=== PATIENT | male | born 1980 | race Caucasian/White ===

== ENCOUNTER 2020-05-02 17:50 | Emergency (ER) | payer OTHER, SELFPAY ==
[2020-05-02 17:58] VITALS: BP 143/82; PULSE 83; RESP 18; TEMP 36.9; O2SAT 96
--- NOTE | 2020-05-02 18:00 | DI.CT_ITS ---
EXAM: CT CHEST/ABD/PEL W TECHNIQUE: CT examination of the chest, abdomen, and pelvis was performed with bolus infusion of 100 cc of Omnipaque 350. COMPARISON: No exams were available for comparison FINDINGS: There is no evidence of a thoracic vascular injury. The lungs are clear. No pneumothorax or pleural effusion. No mediastinal hematoma. No adenopathy in the chest. Tracheobronchial tree appears intact. The liver, spleen, and pancreas appear normal. Gallbladder and bile ducts are normal. Adrenals and kidneys are unremarkable. No evidence of urinary tract injury or obstruction. No abdominal or pelvic vascular injury seen. No abdominal or pelvic adenopathy. No significant abdomi nal wall hernia or hematoma. No evidence of bowel injury. IMPRESSION: No evidence of acute injury of the chest, abdomen, or pelvis. RADIATION DOSE DELIVERED: 927.91mGy.cm Total DLP 927.91mGy.cm Total DLP DATA REPOSITORY: All CT scans at this facility are submitted to the National Radiology Data Registry (NRDR) Dose Index Registry (DIR) with the [employer] (ACR). RADIATION OPTIMIZATION: All CT scans at this facility use at least one of these dose optimization te chniques: automated exposure control; mA and/or kV adjustment per patient size (includes targeted exa ms where dose is matched to clinical indication); or iterative reconstruction.
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
[2020-05-02 18:17] LABS: Abs Immature Grans 0.04 10^3/uL (0.0-0.06); Absolute Basophil Count 0.03 10^3/uL (0.0-0.2); Absolute Eosinophil Count 0.02 10^3/uL (0.0-0.7); Absolute Lymphocyte Count 2.21 10^3/uL (1.2-3.4); Basophils % 0.3; Eosinophils % 0.2; HCT 44.2 % (40.0-50.0); HGB 15.1 g/dL (13.5-17.5); Immature Grans % 0.4; Lymphocytes % 20.5; MCH 30.2 pg (27.0-33.0); MCHC 34.2 % (32.0-36.0); MCV 88.4 fL (80-95); MPV 9.7 fL (8.0-11.0); Monocytes % 5.6; Platelet Count 233 10^3/uL (130-400); RDW 12.2 % (11.8-14.1); RDW-SD 39.2 fL
--- NOTE | 2020-05-02 18:17 | DI.CT_ITS ---
EXAM: CT HEAD CERVICAL SPINE WO COMPARISON: No exams were available for comparison FINDINGS: CT examination of the cervical spine was performed without contrast administration. There is no evide nce of acute cervical spine fracture or dislocation. Tracheolaryngeal structures appear intact. No ce rvical mass or adenopathy. Intervertebral disc spaces are well maintained. Noncontrast cranial CT was performed. Ventricular system is normal in appearance. No evidence of acut e intracranial hemorrhage, mass effect, or midline shift. No calvarial fracture. The orbital and temp oral bone structures appear intact. IMPRESSION: No evidence of acute cervical spine injury. No evidence of acute intracranial injury. RADIATION DOSE DELIVERED: 1,129.41mGy.cm Total DLP DATA REPOSITORY: All CT scans at this facility are submitted to the National Radiology Data Registry (NRDR) Dose Index Registry (DIR) with the [employer] (ACR). RADIATION OPTIMIZATION: All CT scans at this facility use at least one of these dose optimization te chniques: automated exposure control; mA and/or kV adjustment per patient size (includes targeted exa ms where dose is matched to clinical indication); or iterative reconstruction.
[2020-05-02 18:30] LABS: PTT Activated 23.2 sec (21.0-31.4); Prothrombin Time 10.4 sec (9.3-11.0)
[2020-05-02 18:32] LABS: ALT 25 U/L (16-63); AST 22 U/L (15-37); Albumin 4.4 g/dL (3.4-5.0); Alkaline Phosphatase 59 U/L (46-116); Anion Gap 14.2 mmol/L (3-11); BUN 9 mg/dL (7-18); Bilirubin, Total 0.2 mg/dL (0.2-1.0); CO2 22.8 mmol/L (21.0-32.0); CREATININE 1.03 mg/dL (0.70-1.30); Calcium 9.4 mg/dL (8.5-10.1); Chloride 102 mmol/L (98-107); Glucose 91 mg/dL (74-106); Lipase 118 U/L (73-393); Potassium 3.7 mmol/L (3.5-5.1); Sodium 139 mmol/L (136-145); Total Protein 7.9 g/dL (6.4-8.2)
[2020-05-02] MEDS: Omnipaque 350 MG/ML 100 ML BTL IJ (18:36)
[2020-05-02] MEDS: Normal Saline - Diluent 50 ML VIAL IV (18:37)
[2020-05-02] MEDS: Normal Saline Flush 10 ML SYR IVP (18:37)
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
[2020-05-02 19:34] LABS: Bilirubin Negative (Negative); Blood Negative (Negative); Clarity Clear (Clear); Glucose Negative (Negative); Ketones Negative (Negative); Leukocyte Esterase Negative (Negative); Nitrite Negative (Negative); Urobilinogen 0.2 EU/dL (Up TO 0.2)
[2020-05-02 20:26] VITALS: PULSE 72; RESP 18; TEMP 36.8; O2SAT 98
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
== END 2020-05-02 20:15 | disposition home or self-care (01) ==
PROVIDERS: Emergency Provider Physician Assistant; PCP Family Medicine
DX: S06.0X1A Concussion with loss of consciousness of 30 minutes or less, initial encounter (principal); M54.5 Low back pain; W50.0XXA Accidental hit or strike by another person, initial encounter; Y93.64 Activity, baseball; R11.0 Nausea
CPT/HCPCS: 36415; 74177; 80053; 83690; 99285; 70450; 71260; 72125; 80320; 81003; 85025; 85610; 85730; 99284; J3490; L0172

== ENCOUNTER 2020-10-20 10:00 | Outpatient (REF) | payer OTHER, SELFPAY ==
[2020-10-21 17:39] LABS: COVID-19 RT-PCR UVMMC Result Negative (Negative)
== END 2020-10-20 10:20 ==
LOC: NCHCN 10:00
PROVIDERS: PCP Emergency Medicine; Visit Provider Physician Assistant Medical
DX: Z20.828 Contact with and (suspected) exposure to other viral communicable diseases (principal)
CPT/HCPCS: U0003

== ENCOUNTER 2022-04-21 00:50 | Emergency (ER) | payer BC, SELFPAY ==
[2022-04-21] VITALS (43 sets, daily range): BP systolic 102–141; BP diastolic 59–93; PULSE 65–96; RESP 7–25; TEMP 36.8; O2SAT 83–100
--- NOTE | 2022-04-21 00:45 | RT.EKG_ITS ---
APPROVED REPORT Exam: Resting ECG Reason for Exam: chest pain Patient Location: E HR:87 bpm ECG Measurements Heart Rate 87 AXIS DC 129 P 70 QRSd 75 QRS 57 QT 357 T 29 QTc 429 Conclusion Sinus rhythm...normal P axis, V-rate 60- 99 Consider left ventricular hypertrophy...(S V1+R V5/V6) >3.50mV Physician: no significant st elevation or depressions. no stemi
--- NOTE | 2022-04-21 01:00 | DI.CT_ITS ---
Exam(s) CT THORAX CTA EXAM: CT THORAX CTA CLINICAL HISTORY: FHx of anyurism, left chest pain, recent cocaine. TECHNIQUE: Imaging Protocol: Axial CT angiography was performed with multi-slice acquisition and mu lti-planar reconstructions as well as axial, coronal and sagittal MIP reconstructions. CONTRAST MATERIAL: Intravenous: Omnipaque 350 Contrast volume:100 ml COMPARISON: CT CT CHEST/ABD/PEL W from 05/02/2020 FINDINGS: Pulmonary Arteries: No evidence of filling defect to suggest pulmonary emboli. Tracheobronchial tree: Patent where visualized. Mediastinum and Princess: No dominant adenopathy or fluid collection. Pulmonary parenchyma: No consolidation or dominant measurable mass. Pleura: No effusion or pneumothorax. Heart: The heart is not dilated. No coronary artery calcifications are seen. Aorta: Thoracic aorta non-dilated. No aneurysm. No dissection. No visible atherosclerotic changes. Upper abdomen: Unremarkable. Bones: Unremarkable for age. IMPRESSION: No evidence of pulmonary embolism or other acute abnormality. Aorta appears normal.. RADIATION DOSE DELIVERED: 315.58mGy.cm Total DLP DATA REPOSITORY: All CT scans at this facility are submitted to the National Radiology Data Registry (NRDR) Dose Index Registry (DIR) with the [employer] (ACR). RADIATION OPTIMIZATION: All CT scans at this facility use at least one of these dose optimization te chniques: automated exposure control; mA and/or kV adjustment per patient size (includes targeted exa ms where dose is matched to clinical indication); or iterative reconstruction.
[2022-04-21] MEDS: nitroGLYcerin 0.4 MG TAB SL (01:05)
--- NOTE | 2022-04-21 01:08 | ED.GENADUL_ITS ---
Discharge Plan Disposition Patient Disposition: HOME Condition: Good Discharge Details Clinical Impression: Chest pain Primary Care Provider: Larry Berg ED Provider: Delvis Mejia Home Meds and New Rx's Prescriptions: Continued esomeprazole magnesium [Nexium 24HR] 20 mg capsule,delayed release(DR/EC) 40 mg PO DAILY sertraline 50 mg tablet 50 mg PO DAILY Qty: 60 6RF Rx Instructions: .5 tab x 7d, then 1 tab x 7d, then 1.5 tab x 7d acetaminophen [Tylenol] 325 MG tablet 650 mg PRN Discharge Instructions Instructions: Chest Pain (ED) Additional Instructions: At this time your work-up is reassuring and shows no evidence of blood clots, heart attack, tumors, pneumonia, or other significant abnormalities. Please continue to monitor your symptoms closely, take Tylenol and Motrin as needed for pain. If you notice any worsening of your symptoms, or any new symptoms such as vomiting, diarrhea, fever, chills, shortness of breath, chest pain, numbness, weakness, or fainting , please return immediately to the emergency department for reevaluation. Please follow up with your primary care provider as soon as possible for reassessment and reevaluation. As always, it was a pleasure participating in your medical care today. Referrals: Larry Berg, [employer] [Primary Care Provider] - Medical Decision Making This is a 41-year-old male with no significant past medical history who presents today for chest pain. At 10:30 PM just under 3 hours prior to arrival he developed left-sided chest pain while sleeping. It woke him up out of sleep. He describes it initially as an achy sensation, which then encapsulated his left chest and left arm. It is painful to breathe, made worse with any deep breath. Unchanged by movement or positioning, unchanged by leaning forward. He denies any cough, fever or chills. He denies any tearing or ripping sensation. He denies any recent long trips, surgery or procedures. He does smoke tobacco regularly. No family history of myocardial infarction, but he does have a family history of aneurysms in first and second-degree relatives. He does admit to cocaine use in the last 1 to 2 weeks. He states he does not do this regularly. He denies any IV drug use. He denies any numbness or tingling in his arms or legs. No other complaints at this time. No other modifying factors. Physical exam demonstrates a well-appearing but slightly uncomfortable male. Radial pulses equal bilaterally. Breath sounds symmetric. Limited bedside echo demonstrates good cardiac contractility. No evidence of pericardial effusion. Differential includes cardiac etiology including but less likely ACS, pneumothorax, and because of his family history and cocaine use dissection/aneurysm is certainly of concern. Because of these findings, we will get a CTA, evaluate for concerning etiology, treat the patient's pain, administered nitroglycerin, monitor closely and reassess. 4:48 AM EKG is returned normal, initial and delta troponin are normal. Minimal elevation in his white count. Electrolytes normal, renal function normal. CTA was ordered for the above-mentioned concerns, and CTA shows no evidence of aneurysm, pulmonary abnormality, or pulmonary embolism. On reassessment patient has mild improvement of his symptoms. He seems to be relatively unchanged though with nitroglycerin Toradol or GI cocktail. He states his symptoms do not feel as bad as they initially did when he arrived. He does feel comfortable going home. Differential now more likely includes a pleurisy component, potential esophageal irritation or ulcer, but the symptoms are notably clinically inconsistent at this time with pulmonary embolism, AAA, dissection, pneumonia, tumor, or ACS. With initial and delta troponin normal, and his current clinical symptomatology inconsistent with ACS, I do feel that he is stable for discharge with close follow-up. We had a long discussion regarding red flags for which to return. Also discussed avoiding cocaine in the future. I have extensively reviewed the treatment plan and discharge instructions with the patient. I have addressed all patient concerns at this time. The patient was made aware of what symptoms to monitor for that would warrant a return to the emergency department. Discussed the plan with the patient, they demonstrate verbal understanding and agreement with our assessment and plan at this time. The documentation in this chart was dictated using [employer] dictation software. Please excuse any dictation errors. FINDINGS: Pulmonary arteries: Normal. No pulmonary emboli. Aorta: Unremarkable. No aortic aneurysm. No aortic dissection. Lungs: Unremarkable. No consolidation. No masses. Pleural spaces: Unremarkable. No pneumothorax. No pleural effusion. Heart: Unremarkable. No cardiomegaly. No pericardial effusion. Lymph nodes: Unremarkable. No enlarged lymph nodes. Bones/joints: Unremarkable. No acute fracture. Soft tissues: Unremarkable. IMPRESSION: No acute findings. Thank you for allowing us to participate in the care of your patient. Dictated and Authenticated by: Forrest Carrillo MD 04/21/2022 3:37 AM Eastern Time ([place] & [place]) HPI General Date/Time Provider Initiated Documentation: 04/21/22 00:51 . HPI Narrative: This is a 41-year-old male with no significant past medical history who presents today for chest pain. At 10:30 PM just under 3 hours prior to arrival he developed left-sided chest pain while sleeping. It woke him up out of sleep. He describes it initially as an achy sensation, which then encapsulated his left chest and left arm. It is painful to breathe, made worse with any deep breath. Unchanged by movement or positioning, unchanged by leaning forward. He denies any cough, fever or chills. He denies any tearing or ripping sensation. He denies any recent long trips, surgery or procedures. He does smoke tobacco regularly. No family history of myocardial infarction, but he does have a family history of aneurysms in first and second-degree relatives. He does admit to cocaine use in the last 1 to 2 weeks. He states he does not do this regularly. He denies any IV drug use. He denies any numbness or tingling in his arms or legs. No other complaints at this time. No other modifying factors. Related Data Home Medications Medication Instructions Recorded Confirmed acetaminophen 325 mg tablet 650 mg PRN 01/28/14 05/05/20 (Tylenol) esomeprazole magnesium 20 mg 40 mg PO DAILY 06/01/20 04/21/22 capsule,delayed release (Nexium 24HR) sertraline 50 mg tablet 50 mg PO DAILY #60 tabs 06/01/20 06/01/20 Previous Rx's Medication Instructions Recorded sertraline 50 mg tablet 50 mg PO DAILY #60 tabs 06/01/20 Allergies Allergy/AdvReac Type Severity Reaction Status Date / Time No Known Allergies Allergy Unverified 04/21/22 00:59 General Stated Complaint: Chest Pain JUAN ALBERTO: 2 Review of Systems All systems reviewed & are unremarkable except as noted in HPI and below PFSH All Active Problems (Updated 04/21/22 @ 03:27 by Delvis Mejia DO) Chest pain (Acute) Anxiety (Chronic) Social History (Reviewed 04/21/22 @ 01:23 by LACHO Barnes Smoking/Tobacco Use Status: Current every day Tobacco Type: cigarettes Smoking risk assessment performed?: Yes Alcohol Intake: current Alcohol Intake frequency: a few times a week Drug use: Occasionally Substance use type: marijuana and crack/cocaine Details: admit to 6-7 beers today Do you feel safe at home: Yes Do you feel safe in your relationship?: Yes Exam Narrative Exam Narrative: 1.Const: Well-nourished, Well-developed, appearing stated age 2.Eyes: PERRL, no conjunctival injection, and symmetrical lids. 3.ENT: Atraumatic external nose and ears. Moist MM. Neck: Symmetric, trachea midline, No thyromegaly. 4.CVS: +S1/S2, No murmurs or gallops. Peripheral pulses 2+ and equal in all extremities. Brisk capillary refill in all extremities. 5.RESP: Unlabored respiratory effort. Clear to auscultation bilaterally. No wheezes rales or rhonchi 6.GI: Soft, Nontender/Nondistended, No hepatosplenomegaly. No guarding or rebound. 7.MSK: Normocephalic/Atraumatic, Extremities w/o deformity or ttp No cyanosis or clubbing, Normal movement of all extremities 8.Skin: Warm, Dry. No rashes or lesions. 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 Sensation grossly intact, no focal neurologic deficits. 10.Psych: (AAO) x3. Appropriate mood and affect Course Vital Signs Vital signs: Vital Signs Temperature 36.8 C 04/21/22 00:56 Pulse 86 04/21/22 00:56 Respiratory Rate 04/21/22 00:56 Blood Pressure 141/91 H 04/21/22 00:56 Pulse Oximetry 100 04/21/22 00:56 Temperature 36.8 C 04/21/22 00:56 Temperature Source Temporal Artery Scan 04/21/22 00:56 Pulse 86 04/21/22 00:56 Respiratory Rate 22 04/21/22 00:56 Respiratory Effort 04/21/22 01:00 Blood Pressure 141/91 H 04/21/22 00:56 Blood Pressure Position Sitting 04/21/22 00:56 Pulse Oximetry 100 04/21/22 00:56 Oxygen Delivery Method Room Air 04/21/22 00:56 Oxygen Flow Rate 0 07/22/22 00:56 Pain Level 6 04/21/22 00:56
[2022-04-21] MEDS: MORPHine 10 MG/ML VIAL 4 MG IVP (01:10)
[2022-04-21] MEDS: nitroGLYcerin 0.4 MG TAB (01:10)
[2022-04-21 01:15] LABS: Abs Immature Grans 0.06 10^3/uL (0.0-0.06); Absolute Basophil Count 0.03 10^3/uL (0.0-0.2); Absolute Eosinophil Count 0.23 10^3/uL (0.0-0.7); Absolute Lymphocyte Count 3.14 10^3/uL (1.2-3.4); Absolute Monocyte Count 0.73 10^3/uL (0.1-0.8); Basophils % 0.2; Eosinophils % 1.6; HCT 45.9 % (40.0-50.0); HGB 15.4 g/dL (13.5-17.5); Immature Grans % 0.4; MCH 30.2 pg (27.0-33.0); MCHC 33.6 % (32.0-36.0); MCV 90 fL (80-95); MPV 9.5 fL (8.0-11.0); Monocytes % 5.1; Neutrophils % 70.7; Platelet Count 227 10^3/uL (130-400); RDW 12.2 % (11.8-14.1); RDW-SD 40.7 fL; WBC 14.29 10^3/uL (4.4-10.8)
[2022-04-21 01:30] LABS: PTT Activated 25.2 sec (21.0-27.5); Prothrombin Time 10.2 sec (9.3-11.0)
[2022-04-21 01:31] LABS: ALT 23 U/L (16-63); AST 14 U/L (15-37); Albumin 4.2 g/dL (3.4-5.0); Alkaline Phosphatase 63 U/L (46-116); Anion Gap 9.3 mmol/L (3-11); BUN 16 mg/dL (7-18); Bilirubin, Total 0.3 mg/dL (0.2-1.0); CO2 27.7 mmol/L (21.0-32.0); CREATININE 1.1 mg/dL (0.70-1.30); Calcium 9.4 mg/dL (8.5-10.1); Chloride 102 mmol/L (98-107); Glucose 120 mg/dL (74-106); Potassium 3.4 mmol/L (3.5-5.1); Sodium 139 mmol/L (136-145); Total Protein 7.7 g/dL (6.4-8.2); Troponin I < 50 ng/L (<or=60)
[2022-04-21] MEDS: Omnipaque 350 MG/ML 100 ML BTL IJ (01:43)
--- NOTE | 2022-04-21 03:37 | DI.VRAD_ITS ---
PROCEDURE INFORMATION: Exam: CTA Chest With Contrast Exam date and time: 04/21/2022 1:29 AM Age: 41 years old Clinical indication: Chest wall pain; Additional info: Fhx of anyurism, left chest pain, recent cocaine TECHNIQUE: Imaging protocol: Computed tomographic angiography of the chest with contrast. 3D rendering (Not supervised by radiologist): MIP and/or 3D reconstructed images were created by the technologist. Radiation optimization: All CT scans at this facility use at least one of these dose optimization techniques: automated exposure control; mA and/or kV adjustment per patient size (includes targeted exams where dose is matched to clinical indication); or iterative reconstruction. Contrast material: OMNI 350; Contrast volume: 100 ml; Contrast route: INTRAVENOUS (IV); COMPARISON: CT CHEST/ABD/PEL W 05/02/2020 6:26 PM FINDINGS: Pulmonary arteries: Normal. No pulmonary emboli. Aorta: Unremarkable. No aortic aneurysm. No aortic dissection. Lungs: Unremarkable. No consolidation. No masses. Pleural spaces: Unremarkable. No pneumothorax. No pleural effusion. Heart: Unremarkable. No cardiomegaly. No pericardial effusion. Lymph nodes: Unremarkable. No enlarged lymph nodes. Bones/joints: Unremarkable. No acute fracture. Soft tissues: Unremarkable. IMPRESSION: No acute findings. Dictated and Authenticated by: Forrest Carrillo MD. Ordering:STACIE Edmondson MD
[2022-04-21 04:07] LABS: Troponin I < 50 ng/L (<or=60)
[2022-04-21] MEDS: Ketorolac 15 MG/ML VIAL IVP (04:34)
== END 2022-04-21 04:48 | disposition home or self-care (01) ==
PROVIDERS: Emergency Provider Student in an Organized Health Care Education/Training Program; PCP Nurse Practitioner Family
DX: R07.9 Chest pain, unspecified (principal); D72.829 Elevated white blood cell count, unspecified; F17.210 Nicotine dependence, cigarettes, uncomplicated
CPT/HCPCS: 36415; 71275; 80053; 93005; 96374; 96375; 99285; 84484; 85025; 85610; 85730; 93010; 99284; J1885; J2270; J3490

== ENCOUNTER 2022-05-03 16:39 | Inpatient (IN) | payer BC, SELFPAY ==
[2022-05-03 16:46] VITALS: BP 123/74; PULSE 92; RESP 20; TEMP 36.2; O2SAT 98
--- NOTE | 2022-05-03 17:15 | DI.RAD_ITS ---
Exam(s) XR PORTABLE CHEST AP EXAM: XR PORTABLE CHEST AP CLINICAL HISTORY: fever, chest pain TECHNIQUE: 2D digital imaging was performed. COMPARISON: CT CT ABDOMEN PELVIS WO from 05/03/2022 FINDINGS: LUNGS: Streaky and patchy densities are noted of above both diaphragms, right greater than left,, inf iltrates versus severe atelectasis.. No pleural abnormality seen. HEART: Normal. AORTA: Normal. BONES: Unremarkable for age. Soft tissues: Unremarkable. IMPRESSION: Bibasilar infiltrates. DATA REPOSITORY: RADIATION DOSE DELIVERED:
[2022-05-03 17:36] LABS: Source Nasal/Nares
[2022-05-03 17:36] LABS: Abs Immature Grans 0.03 10^3/uL (0.0-0.06); Absolute Basophil Count 0.02 10^3/uL (0.0-0.2); Absolute Eosinophil Count 0.02 10^3/uL (0.0-0.7); Absolute Lymphocyte Count 1.21 10^3/uL (1.2-3.4); Absolute Monocyte Count 0.95 10^3/uL (0.1-0.8); Absolute Neutrophil Count 5.67 10^3/uL (1.2-6.7); Basophils % 0.3; Eosinophils % 0.3; HCT 35.4 % (40.0-50.0); HGB 12.4 g/dL (13.5-17.5); Immature Grans % 0.4; Lymphocytes % 15.3; MCV 86 fL (80-95); MPV 9.8 fL (8.0-11.0); Neutrophils % 71.7; Platelet Count 268 10^3/uL (130-400); RBC 4.14 10^6/uL (4.36-5.78); RDW 11.8 % (11.8-14.1); RDW-SD 37.1 fL
[2022-05-03] MEDS: Normal Saline 1,000 ML 1000 ML IV (17:51)
[2022-05-03 17:53] LABS: ALT 81 U/L (16-63); AST 48 U/L (15-37); Albumin 3.1 g/dL (3.4-5.0); Alkaline Phosphatase 137 U/L (46-116); Anion Gap 7.1 mmol/L (3-11); BUN 8 mg/dL (7-18); Bilirubin, Total 0.3 mg/dL (0.2-1.0); CO2 26.9 mmol/L (21.0-32.0); CREATININE 1.1 mg/dL (0.70-1.30); Calcium 8.8 mg/dL (8.5-10.1); Chloride 98 mmol/L (98-107); Glucose 113 mg/dL (74-106); Lipase 86 U/L (73-393); Potassium 3.4 mmol/L (3.5-5.1); Sodium 132 mmol/L (136-145); Total Protein 7.6 g/dL (6.4-8.2)
[2022-05-03 18:34] LABS: COVID-19 PCR Negative (Negative)
--- NOTE | 2022-05-03 19:00 | DI.CT_ITS ---
Exam(s) CT ABDOMEN PELVIS WO EXAM: CT ABDOMEN PELVIS WO CLINICAL HISTORY: RUQ pain, fever, elevated LFT/alk phos. TECHNIQUE: Imaging Protocol: Axial computed tomography images with coronal and sagittal reformatted images were created and reviewed. Oral: no COMPARISON: CT CT CHEST/ABD/PEL W from 05/02/[address] THORAX CTA from 04/21/2022 FINDINGS: Lung Bases: Heart size normal. Small pericardial effusion. Tiny left pleural effusion. Bibasilar i nfiltrates versus atelectasis, left greater than right. Liver: Normal density. Mildly enlarged at 19 cm in length. No measurable mass. Gallbladder and biliary tract: No radiodense calculus or dilation. Pancreas: Normal density, no abnormal calcifications or inflammatory process. Spleen: Normal. Kidneys: Normal size, contour and axis. No radiodense stones or obstructive uropathy. No masses seen. Adrenal glands: No masses seen. Lymph nodes: Within normal limits. Abdominal Aorta: Abdominal portion non-dilated. Minimal calcification. Bladder: Symmetric distention, no gross wall thickening. Bowel: No obstruction or bowel wall thickening. Peritoneal cavity: No ascites, collection or mesenteric inflammatory response. Reproductive organs: Within normal limits. Bones: Within normal limits. IMPRESSION: Small pericardial effusion. Tiny left pleural effusion. Bibasilar infiltrates versus atelectasis, l eft greater than right. Mildly enlarged liver without focal abnormality or biliary dilatation. Unremarkable gallbladder. RADIATION DOSE DELIVERED: 563.14mGy.cm Total DLP DATA REPOSITORY: All CT scans at this facility are submitted to the National Radiology Data Registry (NRDR) Dose Index Registry (DIR) with the [employer] (ACR). RADIATION OPTIMIZATION: All CT scans at this facility use at least one of these dose optimization te chniques: automated exposure control; mA and/or kV adjustment per patient size (includes targeted exa ms where dose is matched to clinical indication); or iterative reconstruction.
--- NOTE | 2022-05-03 19:17 | DI.VRAD_ITS ---
PROCEDURE INFORMATION: Exam: XR Chest Exam date and time: 05/03/2022 6:07 PM Age: 41 years old Clinical indication: Other: Fever, chest pain TECHNIQUE: Imaging protocol: Radiologic exam of the chest. Views: 1 view. COMPARISON: CT THORAX CTA 04/21/2022 1:29 AM FINDINGS: Lungs: Left retrocardiac heterogeneous consolidation and patchy Ill-defined opacities within the bilateral pulmonary bases most likely may be compatible with atelectasis versus early pulmonary infiltrates. Pleural spaces: Unremarkable. No pleural effusion. No pneumothorax. Heart/Mediastinum: Unremarkable. No cardiomegaly. Bones/joints: Unremarkable. IMPRESSION: Left retrocardiac heterogeneous consolidation and patchy Ill-defined opacities within the bilateral pulmonary bases most likely may be compatible with atelectasis versus early pulmonary infiltrates. Dictated and Authenticated by: Rolando Fair MD. Ordering:REINIER Sauceda MD
[2022-05-03 20:13] VITALS: TEMP 38.5
[2022-05-03] MEDS: Acetaminophen 500 MG TAB 1000 MG PO (20:13)
[2022-05-03 20:18] LABS: Bilirubin Negative (Negative); Blood Trace-lysed (Negative); Clarity Clear (Clear); Glucose Negative (Negative); Ketones Negative (Negative); Leukocyte Esterase Negative (Negative); Nitrite Negative (Negative); Urobilinogen 0.2 EU/dL (Up TO 0.2)
--- NOTE | 2022-05-03 20:28 | DI.VRAD_ITS ---
PROCEDURE INFORMATION: Exam: CT Abdomen And Pelvis Without Contrast Exam date and time: 05/03/2022 7:26 PM Age: 41 years old Clinical indication: Abdominal pain; Localized; Right upper quadrant (ruq); Additional info: Ruq pain, fever, elevated lft/alk phos TECHNIQUE: Imaging protocol: Computed tomography of the abdomen and pelvis without contrast. Radiation optimization: All CT scans at this facility use at least one of these dose optimization techniques: automated exposure control; mA and/or kV adjustment per patient size (includes targeted exams where dose is matched to clinical indication); or iterative reconstruction. COMPARISON: CT CHEST/ABD/PEL W 05/02/2020 6:26 PM FINDINGS: Limitations: Lack of intravenous contrast limits evaluation of the solid viscera and bowel. Lungs: Bibasilar atelectasis and/or scarring. Heart: Small pericardial effusion with suggestion of thin pericardial thickening, incompletely evaluated on this study. Heart is not enlarged. Liver: Liver is at the upper limits of normal for size. Otherwise unremarkable unenhanced CT appearance. Gallbladder and bile ducts: No significant pericholecystic inflammatory stranding. No calcified stones. No ductal dilation. Pancreas: Unremarkable unhanced appearance of the pancreas. No ductal dilation. Spleen: Unremarkable unenhanced appearance of the spleen. No splenomegaly. Adrenal glands: Normal. No mass. Kidneys and ureters: Unremarkable unenhanced appearance. No hydronephrosis. No renal calcifications. Ureters are normal in course and caliber. Stomach and bowel: Unremarkable unenhanced appearance of the stomach however decompressed limiting evaluation. No evidence of bowel obstruction. No focal bowel wall thickening. Appendix: No evidence of acute appendicitis. Intraperitoneal space: No significant free fluid in the abdomen or pelvis. No free air. Vasculature: There are mild scattered atherosclerotic calcifications of the abdominal aorta and its major branches, no abdominal aortic aneurysm. Lymph nodes: No pathologically enlarged lymph nodes. Urinary bladder: Bladder is distended without focal bladder wall thickening or mass. Reproductive: Prostate gland is enlarged. Bones/joints: Unremarkable. No acute fracture. Soft tissues: No focal abnormality. IMPRESSION: 1. No acute, unenhanced CT finding of the abdomen or pelvis. 2. Small pericardial effusion with suggestion of thin diffuse pericardial thickening, incompletely evaluated on this study. 3. Additional nonacute findings as discussed. Dictated and Authenticated by: Bob Alejandra MD. Ordering:REINIER Sauceda MD
[2022-05-03 20:29] LABS: Bacteria Negative HPF (Negative); C & S Indicated? No; Crystals Negative HPF (Negative); Epithelial Cells Negative HPF (Negative); Mucus Negative (Negative); RBC 0-2 HPF (0-2); WBC Negative HPF (0-5)
--- NOTE | 2022-05-03 20:30 | RT.EKG_ITS ---
APPROVED REPORT Exam: Resting ECG Reason for Exam: chest pain Patient Location: E HR:101 bpm ECG Measurements Heart Rate 101 AXIS OK 117 P 24 QRSd 65 QRS 49 QT 309 T 30 QTc 402 Conclusion Sinus tachycardia...rate> 99
[2022-05-03 21:03] LABS: Troponin I < 50 ng/L (<or=60)
[2022-05-03 21:11] LABS: ESR 48 mm/hr (0-15)
--- NOTE | 2022-05-03 22:24 | W.PM.HP.N ---
Date of service: 05/03/22 Time of Service: 22:24 Assessment and Plan Assessment and plan (1) Pericarditis: Start date: 05/03/22 Status: Acute Assessment and plan: This is a 41-year-old gentleman who presents with chest discomfort associated with breathing and imaging with lab and physical findings revealing pericarditis. He was initiated on NSAIDs and colchicine and will be scheduled echocardiogram in the morning. Cardiac monitoring for now. Symptom management to allow adequate sleep. Is most likely is associated with viral illness with patient having COVID earlier in the year and he is having fever with possible pneumonia prompting coverage with IV Rocephin and doxycycline. Tickborne infectious etiology need to be considered and this should be covered with Rocephin and doxycycline. He is a full code. (2) Pneumonia: Start date: 05/03/22 Status: Acute Assessment and plan: Imaging did reveal atelectasis and possible basilar pneumonia with patient covered with IV Rocephin and doxycycline. He is having recurrent fever which may be associate with pneumonia but also etiology of pericarditis is still infectious with either virus or tickborne illnesses. Continue follow-up clinically and reimage if needed. History of Present Illness History of Present Illness Chief Complaint: Fever with chest pain for 3 days Narrative: This is a 41-year-old male patient who was awakened with atypical chest pain about 2 weeks prior to this admission and reported to the ED thinking that he was having a heart attack. He was diagnosed with GERD and given a PPI. He presents now with 3-day history of fever with generalized myalgias, fatigue and epigastric as well as retrosternal chest pain especially with deep breathing and certain positions. After evaluation he was found to have probable pericarditis with elevated liver enzymes and elevated inflammatory markers consistent the diagnosis. He does have possibility of bilateral pneumonia versus atelectasis and was started on Rocephin with doxycycline with tickborne disease panel pending and covered while awaiting further diagnostics. The patient continues to have chest discomfort intermittently even after being started on anti-inflammatories with Toradol and then Naprosyn as well as colchicine for acute pericarditis. Patient does admit to occasional use of cocaine last use about a month ago. He has had no recent COVID-19 infection but did have it earlier in the year. Patient not having exertional chest pain, cough or dyspnea. He does have rigors before his fever. Review of Systems Narrative: 13 point review systems otherwise unrevealing or stable. Patient has had no rash. He denies any known tick bites. PFSH All Active Problems Pneumonia (Acute) Pericarditis (Acute) Chest pain (Acute) Anxiety (Chronic) Social History Smoking/Tobacco Use Status: Current every day Tobacco Type: cigarettes Smoking risk assessment performed?: Yes Alcohol Intake: current Alcohol Intake frequency: a few times a week Drug use: Occasionally Substance use type: marijuana and crack/cocaine Do you feel safe at home: Yes Do you feel safe in your relationship?: Yes Meds Allergies and Home Medications Allergies Allergy/AdvReac Type Severity Reaction Status Date / Time No Known Allergies Allergy Unverified 05/03/22 16:49 Home Medications Medication Instructions Recorded Confirmed Type acetaminophen 325 mg tablet 650 mg PRN 01/28/14 05/03/22 History (Tylenol) esomeprazole magnesium 20 mg 40 mg PO DAILY 06/01/20 05/03/22 History capsule,delayed release (Nexium 24HR) Exam Narrative Exam Narrative: General: Patient is appropriate for age, in moderate distress with his chest discomfort especially with movement and breathing. He is alert and oriented x3. He is anxious with poor eye contact and flattened affect. HEENT: Normocephalic, eyes with pupils equal and reactive light symmetrically, extraocular movement tact and sclera anicteric. Neck: Supple without JVD. Back: Normal posture without CVA tenderness. Lungs: Fair aeration and clear to auscultation and percussion with slight decreased aeration at both bases. No adventitious sounds. Heart: Regular rate and rhythm with obvious pericardial rub loudest with patient expiring and over entire left sternal border. No murmur and no gallop. Chest: Nontender to palpation. Abdomen: Normal contour, scaphoid with slight tenderness and guarding in right upper quadrant but no palpable hepatosplenomegaly with patient limiting exam. Genitalia/rectal: Exam deferred. Extremity: Without clubbing, cyanosis or pitting edema. Peripheral pulses intact. Skin: Normal color, moist and warm. Neuro: Cranial nerves II through XII grossly intact, no focalizing motor deficits. Psych: Anxious with slightly depressed mood. Patient is in obvious pain. No abnormal thought processes. Remote and recent memory intact. Results Imaging Imaging Studies: Exam: XR Chest Exam date and time: 05/03/2022 6:07 PM Age: 41 years old Clinical indication: Other: Fever, chest pain TECHNIQUE: Imaging protocol: Radiologic exam of the chest. Views: 1 view. COMPARISON: CT THORAX CTA 04/21/2022 1:29 AM FINDINGS: Lungs: Left retrocardiac heterogeneous consolidation and patchy Ill-defined opacities within the bilateral pulmonary bases most likely may be compatible with atelectasis versus early pulmonary infiltrates. Pleural spaces: Unremarkable. No pleural effusion. No pneumothorax. Heart/Mediastinum: Unremarkable. No cardiomegaly. Bones/joints: Unremarkable. IMPRESSION: Left retrocardiac heterogeneous consolidation and patchy Ill-defined opacities within the bilateral pulmonary bases most likely may be compatible with atelectasis versus early pulmonary infiltrates. Exam: CT Abdomen And Pelvis Without Contrast Exam date and time: 05/03/2022 7:26 PM Age: 41 years old Clinical indication: Abdominal pain; Localized; Right upper quadrant (ruq); Additional info: Ruq pain, fever, elevated lft/alk phos TECHNIQUE: Imaging protocol: Computed tomography of the abdomen and pelvis without contrast. Radiation optimization: All CT scans at this facility use at least one of these dose optimization techniques: automated exposure control; mA and/or kV adjustment per patient size (includes targeted exams where dose is matched to clinical indication); or iterative reconstruction. COMPARISON: CT CHEST/ABD/PEL W 05/02/2020 6:26 PM FINDINGS: Limitations: Lack of intravenous contrast limits evaluation of the solid viscera and bowel. Lungs: Bibasilar atelectasis and/or scarring. Heart: Small pericardial effusion with suggestion of thin pericardial thickening, incompletely evaluated on this study. Heart is not enlarged. Liver: Liver is at the upper limits of normal for size. Otherwise unremarkable unenhanced CT appearance. Gallbladder and bile ducts: No significant pericholecystic inflammatory stranding. No calcified stones. No ductal dilation. Pancreas: Unremarkable unhanced appearance of the pancreas. No ductal dilation. Spleen: Unremarkable unenhanced appearance of the spleen. No splenomegaly. Adrenal glands: Normal. No mass. Kidneys and ureters: Unremarkable unenhanced appearance. No hydronephrosis. No renal calcifications. Ureters are normal in course and caliber. Stomach and bowel: Unremarkable unenhanced appearance of the stomach however decompressed limiting evaluation. No evidence of bowel obstruction. No focal bowel wall thickening. Appendix: No evidence of acute appendicitis. Intraperitoneal space: No significant free fluid in the abdomen or pelvis. No free air. Vasculature: There are mild scattered atherosclerotic calcifications of the abdominal aorta and its major branches, no abdominal aortic aneurysm. Lymph nodes: No pathologically enlarged lymph nodes. Urinary bladder: Bladder is distended without focal bladder wall thickening or mass. Reproductive: Prostate gland is enlarged. Bones/joints: Unremarkable. No acute fracture. Soft tissues: No focal abnormality. IMPRESSION: 1. No acute, unenhanced CT finding of the abdomen or pelvis. 2. Small pericardial effusion with suggestion of thin diffuse pericardial thickening, incompletely evaluated on this study. 3. Additional nonacute findings as discussed. Labs Result diagrams: 05/03/22 17:20 05/03/22 17:20 Labs: Laboratory Results - last 24 hr 05/03/22 05/03/22 05/03/22 17:20 17:20 17:20 WBC 7.90 RBC 4.14 L Hgb 12.4 L Hct 35.4 L MCV 86 MCH 30.0 MCHC 35.0 RDW 11.8 Plt Count 268 MPV 9.8 Immature Gran % 0.4 Neutrophils % 71.7 Lymphocytes % 15.3 Monocytes % 12.0 Eosinophils % 0.3 Basophils % 0.3 Nucleated RBC % 0.0 Absolute Neutrophils 5.67 Absolute Lymphocytes 1.21 Absolute Monocytes 0.95 H Absolute Eosinophils 0.02 Absolute Basophils 0.02 ESR Sodium 132 L Potassium 3.4 L Chloride 98 Carbon Dioxide 26.9 Anion Gap 7.1 BUN 8 Creatinine 1.1 Estimated GFR/1.73 m2 >= 60.00 Glucose 113 H Calcium 8.8 Total Bilirubin 0.3 AST 48 H ALT 81 H Alkaline Phosphatase 137 H Troponin I < 50 Total Protein 7.6 Albumin 3.1 L Lipase 86 Urine Color Urine Clarity Urine pH Ur Specific [place] Urine Protein Urine Ketones Urine Blood Urine Nitrite Urine Bilirubin Urine Urobilinogen Ur Leukocyte Esterase Urine RBC Urine WBC Ur Epithelial Cells Urine Crystals Urine Bacteria Urine Mucus Ur Culture Indicated? Urine Glucose COVID-19 Source SARS-CoV-2 (PCR) 05/03/22 05/03/22 05/03/22 17:20 17:30 19:30 WBC RBC Hgb Hct MCV MCH MCHC RDW Plt Count MPV Immature Gran % Neutrophils % Lymphocytes % Monocytes % Eosinophils % Basophils % Nucleated RBC % Absolute Neutrophils Absolute Lymphocytes Absolute Monocytes Absolute Eosinophils Absolute Basophils ESR 48 H Sodium Potassium Chloride Carbon Dioxide Anion Gap BUN Creatinine Estimated GFR/1.73 m2 Glucose Calcium Total Bilirubin AST ALT Alkaline Phosphatase Troponin I Total Protein Albumin Lipase Urine Color Yellow Urine Clarity Clear Urine pH 7.0 Ur Specific [place] 1.010 Urine Protein Negative Urine Ketones Negative Urine Blood Trace-lysed H Urine Nitrite Negative Urine Bilirubin Negative Urine Urobilinogen 0.2 Ur Leukocyte Esterase Negative Urine RBC 0-2 Urine WBC Negative Ur Epithelial Cells Negative Urine Crystals Negative Urine Bacteria Negative Urine Mucus Negative Ur Culture Indicated? No Urine Glucose Negative COVID-19 Source Nasal/Nares SARS-CoV-2 (PCR) Negative Last Vital Signs Temp 38.5 C H 05/03/22 20:13 Pulse 92 H 05/03/22 16:46 Resp 20 05/03/22 16:46 BP 123/74 05/03/22 16:46 Pulse Ox 98 05/03/22 16:46 PAWSS Have you Been Recently Intoxicated or Drunk Within the Last 30 days?: Yes Have you Ever Experienced Previous Episodes of Alcohol Withdrawal?: No Have you ever Experienced Withdrawal Seizures?: No Have you ever Experienced Delirium Tremens(DT)s?: No Have you ever undergone Alcohol Rehabilitation Treatment (i.e, inpt ot outpatient treatment programs)?: No Have you ever Experienced Blackouts?: No Have you ever Combined Alcohol with other Downers within the last 90 days?: No Have you ever Combined Alcohol with any other Substance of Abuse during the last 90 days?: No Positive Blood Alcohol level on Presentation? [PCS.BAL]: No Evidence of Increased Autonomic Activity (i.e. HR>120, tremor, sweating, agitation, nausea)?: No Result: 1
--- NOTE | 2022-05-03 22:33 | W.ED.GENAD ---
Discharge Plan Disposition Patient Disposition: [facility] INPATIENT Condition: Serious Discharge Details Clinical Impression: Pericarditis, Chest pain, Pneumonia, Elevated transaminase level Primary Care Provider: None,None ED Provider: Komal Lopez Home Meds and New Rx's Prescriptions: No Action esomeprazole magnesium [Nexium 24HR] 20 mg capsule,delayed release(DR/EC) 40 mg PO DAILY acetaminophen [Tylenol] 325 MG tablet 650 mg PRN Medical Decision Making CT abdomen and pelvis actually shows pericardial inflammation and effusion Chest x-ray shows evidence of infiltrates per radiology interpretation my review EKG does not show acute findings CT thorax was reviewed from patient's prior assessment and addition to EKG H 48, concerning findings for pericarditis With a fever and pericarditis, patient is considered high risk for developing tamponade and will need admission to the hospital He was given Toradol, colchicine, IV antibiotics for concerning pneumonia Blood cultures are pending No leukocytosis Mild elevation in LFTs and alk phos with right upper quadrant pain, CT abdomen and pelvis was ordered for this reason He received Tylenol, colchicine, Toradol, Tylenol He is resting comfortably in room and is vitals are stable at this time Dr. Powell, admitting hospitalist is agreeable to admission at this time COVID swab negative Troponin negative Sed rate 48 Medical Records Medical records reviewed: Yes I reviewed the patient's medical records. Lab Data Lab results reviewed: Yes I reviewed the patient's lab results. HPI General Date/Time Provider Initiated Documentation: 05/03/22 16:52. HPI Narrative: This 41-year-old male presents with fever for the past 3 days, T-max 103, generalized myalgias, fatigue, epigastric discomfort intermittent chest pain exacerbated with deep breathing and position change. Symptoms improved with Tylenol. Describes pain as an ache. Denies any calf pain or swelling. Denies recent flights, surgeries, long drives. Denies prior history of pulmonary embolism. Denies any rashes or lesions. Occasionally uses cocaine. Last use at the beginning of March reportedly. Denies known sick contacts. Denies recent COVID-19 infection. Denies any IV drug abuse history. Denies any cough or shortness of breath. Related Data Home Medications Medication Instructions Recorded Confirmed acetaminophen 325 mg tablet 650 mg PRN 01/28/14 05/03/22 (Tylenol) esomeprazole magnesium 20 mg 40 mg PO DAILY 06/01/20 05/03/22 capsule,delayed release (Nexium 24HR) Allergies Allergy/AdvReac Type Severity Reaction Status Date / Time No Known Allergies Allergy Unverified 05/03/22 16:49 General Stated Complaint: Fever JUAN ALBERTO: 3 Review of Systems All systems reviewed & are unremarkable except as noted in HPI and below PFSH All Active Problems Pneumonia (Acute) Pericarditis (Acute) Chest pain (Acute) Anxiety (Chronic) Social History Smoking/Tobacco Use Status: Current every day Tobacco Type: cigarettes Smoking risk assessment performed?: Yes Alcohol Intake: current Alcohol Intake frequency: a few times a week Drug use: Occasionally Substance use type: marijuana and crack/cocaine Do you feel safe at home: Yes Do you feel safe in your relationship?: Yes Exam Const General: cooperative, comfortable and no acute distress HENMT Head: normal to inspection Mouth: oral mucosae normal Eyes Pupils: PERRL Resp Effort & Inspection: normal respiratory effort Auscultation: clear to auscultation bilaterally Cardio Rate: tachycardic Rhythm: regular rhythm Heart Sounds: no murmurs and no rubs GI Other: Right upper quadrant tenderness, no rebound or guarding Skin General skin exam: no rashes or lesions noted Neuro General: patient alert and patient oriented x3 Extrem Other: Distal pulses intact, no calf swelling or tenderness Course Vital Signs Vital signs: Vital Signs Temperature 36.2 C L 05/03/22 16:46 Pulse 92 H 05/03/22 16:46 Respiratory Rate 20 05/03/22 16:46 Blood Pressure 123/74 05/03/22 16:46 Pulse Oximetry 98 05/03/22 16:46 Temperature 38.5 C H 05/03/22 20:13 Temperature Source Tympanic 05/03/22 20:13 Pulse 92 H 05/03/22 16:46 Respiratory Rate 20 05/03/22 16:46 Respiratory Effort Non-Labored 05/03/22 16:50 Blood Pressure 123/74 05/03/22 16:46 Blood Pressure Position Sitting 05/03/22 16:46 Pulse Oximetry 98 05/03/22 16:46 Oxygen Delivery Method Room Air 05/03/22 16:46 Oxygen Flow Rate 0 05/03/22 16:46 Pain Level 6 05/03/22 16:46 Lab/Test Results Lab/Test Results: 05/03/22 21:34 Blood Blood Culture - Pending 05/03/22 21:34 Blood Blood Culture - Pending Laboratory Tests Range/Units 05/03/22 05/03/22 05/03/22 17:20 17:20 17:20 WBC (4.4-10.8) 10^3/uL 7.90 RBC (4.36-5.78) 10^6/uL 4.14 L Hgb (13.5-17.5) g/dL 12.4 L Hct (40.0-50.0) % 35.4 L MCV (80-95) fL 86 MCH (27.0-33.0) pg 30.0 MCHC (32.0-36.0) % 35.0 RDW (11.8-14.1) % 11.8 Plt Count (130-400) 10^3/uL 268 MPV (8.0-11.0) fL 9.8 Immature Gran % 0.4 Neutrophils % 71.7 Lymphocytes % 15.3 Monocytes % 12.0 Eosinophils % 0.3 Basophils % 0.3 Nucleated RBC % (0.0-0.3) % 0.0 Absolute Neutrophils (1.2-6.7) 10^3/uL 5.67 Absolute Lymphocytes (1.2-3.4) 10^3/uL 1.21 Absolute Monocytes (0.1-0.8) 10^3/uL 0.95 H Absolute Eosinophils (0.0-0.7) 10^3/uL 0.02 Absolute Basophils (0.0-0.2) 10^3/uL 0.02 ESR (0-15) mm/hr Sodium (136-145) mmol/L 132 L Potassium (3.5-5.1) mmol/L 3.4 L Chloride (98-107) mmol/L 98 Carbon Dioxide (21.0-32.0) mmol/L 26.9 Anion Gap (3-11) mmol/L 7.1 BUN (7-18) mg/dL 8 Creatinine (0.70-1.30) mg/dL 1.1 Estimated GFR/1.73 m2 (mL/min/1.73m2) >= 60.00 Glucose (74-106) mg/dL 113 H Calcium (8.5-10.1) mg/dL 8.8 Total Bilirubin (0.2-1.0) mg/dL 0.3 AST (15-37) U/L 48 H ALT (16-63) U/L 81 H Alkaline Phosphatase (46-116) U/L 137 H Troponin I (<or=60) ng/L < 50 Total Protein (6.4-8.2) g/dL 7.6 Albumin (3.4-5.0) g/dL 3.1 L Lipase (73-393) U/L 86 Urine Color (Yellow) Urine Clarity (Clear) Urine pH (5-8) Ur Specific [place] (1.005-1.025) Urine Protein (Negative) mg/dL Urine Ketones (Negative) mg/dL Urine Blood (Negative) Urine Nitrite (Negative) Urine Bilirubin (Negative) Urine Urobilinogen (Up TO 0.2) EU/dL Ur Leukocyte Esterase (Negative) Urine RBC (0-2) HPF Urine WBC (0-5) HPF Ur Epithelial Cells (Negative) HPF Urine Crystals (Negative) HPF Urine Bacteria (Negative) HPF Urine Mucus (Negative) Ur Culture Indicated? Urine Glucose (Negative) mg/dL COVID-19 Source SARS-CoV-2 (PCR) (Negative) Range/Units 05/03/22 05/03/22 05/03/22 17:20 17:30 19:30 WBC (4.4-10.8) 10^3/uL RBC (4.36-5.78) 10^6/uL Hgb (13.5-17.5) g/dL Hct (40.0-50.0) % MCV (80-95) fL MCH (27.0-33.0) pg MCHC (32.0-36.0) % RDW (11.8-14.1) % Plt Count (130-400) 10^3/uL MPV (8.0-11.0) fL Immature Gran % Neutrophils % Lymphocytes % Monocytes % Eosinophils % Basophils % Nucleated RBC % (0.0-0.3) % Absolute Neutrophils (1.2-6.7) 10^3/uL Absolute Lymphocytes (1.2-3.4) 10^3/uL Absolute Monocytes (0.1-0.8) 10^3/uL Absolute Eosinophils (0.0-0.7) 10^3/uL Absolute Basophils (0.0-0.2) 10^3/uL ESR (0-15) mm/hr 48 H Sodium (136-145) mmol/L Potassium (3.5-5.1) mmol/L Chloride (98-107) mmol/L Carbon Dioxide (21.0-32.0) mmol/L Anion Gap (3-11) mmol/L BUN (7-18) mg/dL Creatinine (0.70-1.30) mg/dL Estimated GFR/1.73 m2 (mL/min/1.73m2) Glucose (74-106) mg/dL Calcium (8.5-10.1) mg/dL Total Bilirubin (0.2-1.0) mg/dL AST (15-37) U/L ALT (16-63) U/L Alkaline Phosphatase (46-116) U/L Troponin I (<or=60) ng/L Total Protein (6.4-8.2) g/dL Albumin (3.4-5.0) g/dL Lipase (73-393) U/L Urine Color (Yellow) Yellow Urine Clarity (Clear) Clear Urine pH (5-8) 7.0 Ur Specific [place] (1.005-1.025) 1.010 Urine Protein (Negative) mg/dL Negative Urine Ketones (Negative) mg/dL Negative Urine Blood (Negative) Trace-lysed H Urine Nitrite (Negative) Negative Urine Bilirubin (Negative) Negative Urine Urobilinogen (Up TO 0.2) EU/dL 0.2 Ur Leukocyte Esterase (Negative) Negative Urine RBC (0-2) HPF 0-2 Urine WBC (0-5) HPF Negative Ur Epithelial Cells (Negative) HPF Negative Urine Crystals (Negative) HPF Negative Urine Bacteria (Negative) HPF Negative Urine Mucus (Negative) Negative Ur Culture Indicated? No Urine Glucose (Negative) mg/dL Negative COVID-19 Source Nasal/Nares SARS-CoV-2 (PCR) (Negative) Negative PAWSS Have you Been Recently Intoxicated or Drunk Within the Last 30 days?: Yes Have you Ever Experienced Previous Episodes of Alcohol Withdrawal?: No Have you ever Experienced Withdrawal Seizures?: No Have you ever Experienced Delirium Tremens(DT)s?: No Have you ever undergone Alcohol Rehabilitation Treatment (i.e, inpt ot outpatient treatment programs)?: No Have you ever Experienced Blackouts?: No Have you ever Combined Alcohol with other Downers within the last 90 days?: No Have you ever Combined Alcohol with any other Substance of Abuse during the last 90 days?: No Positive Blood Alcohol level on Presentation? [PCS.BAL]: No Evidence of Increased Autonomic Activity (i.e. HR>120, tremor, sweating, agitation, nausea)?: No Result: 1
[2022-05-03] MEDS: Colchicine 0.6 MG TAB PO (22:57)
[2022-05-03] MEDS: Ketorolac 15 MG/ML VIAL IVP (22:57)
[2022-05-03] MEDS: cefTRIAXone 2 GM/50 ML BAG IVPB (22:57)
[2022-05-03 23:08] LABS: C-Reactive Protein 11.35 mg/dL (0.0-0.3)
[2022-05-03 23:10] LABS: *AMPHETAMINES SCREEN URINE Negative (Negative); *BARBITURATES SCREEN URINE Negative (Negative); *BENZODIAZEPINES SCREEN URINE Negative (Negative); Cannabinoids THC Negative (Negative); Cocaine Screen,Urine Negative (Negative); METHADONE URINE SCREEN Negative (Negative); OPIATES URINE SCREEN Negative (Negative)
[2022-05-03 23:11] LABS: Tricyclic Antidepressants Negative (Negative)
[2022-05-03] MEDS: AZITHROMYCIN 500 MG in Normal Saline 250 ML 250 MG IVPB (23:36)
[2022-05-03 23:56] VITALS: BP 111/80; PULSE 93; RESP 16; TEMP 36.8; O2SAT 97
[2022-05-03 23:59] VITALS: PULSE 89
[2022-05-04] VITALS (10 sets, daily range): BP systolic 96–111; BP diastolic 66–74; PULSE 69–89; RESP 12–20; TEMP 35.7–37.2; O2SAT 94–99
[2022-05-04] MEDS: DOXYCYCLINE 100 MG in Normal Saline 100 ML IVPB ×2 (01:27→13:25)
[2022-05-04] MEDS: Normal Saline Flush 10 ML SYR IVP ×6 (02:29→17:47)
[2022-05-04] MEDS: Acetaminophen 325 MG TAB PO (02:29)
[2022-05-04] MEDS: MORPHine 4 MG/ML SYR IVP ×2 (02:45→06:53)
[2022-05-04 03:32] LABS: TSH (W/Ref FT4) 1.21 uIU/mL (0.36-3.74); Troponin I < 50 ng/L (<or=60)
[2022-05-04] MEDS: Heparin 5,000 UNITS/ML VIAL 5000 UNITS SC ×2 (06:48→14:45)
[2022-05-04 07:05] LABS: Lactate 0.7 mmol/L (0.6-1.4)
[2022-05-04 07:10] LABS: Abs Immature Grans 0.03 10^3/uL (0.0-0.06); Absolute Basophil Count 0.02 10^3/uL (0.0-0.2); Absolute Eosinophil Count 0.04 10^3/uL (0.0-0.7); Absolute Monocyte Count 1.03 10^3/uL (0.1-0.8); Absolute Neutrophil Count 4.02 10^3/uL (1.2-6.7); Basophils % 0.3; Eosinophils % 0.6; HGB 11.3 g/dL (13.5-17.5); Immature Grans % 0.4; Lymphocytes % 24.9; MCHC 34.2 % (32.0-36.0); MCV 88 fL (80-95); MPV 9.6 fL (8.0-11.0); Monocytes % 15.1; Neutrophils % 58.7; Platelet Count 216 10^3/uL (130-400); RBC 3.77 10^6/uL (4.36-5.78); RDW 12.1 % (11.8-14.1); RDW-SD 39.3 fL; WBC 6.84 10^3/uL (4.4-10.8)
[2022-05-04 07:11] LABS: ESR 39 mm/hr (0-15)
[2022-05-04 07:39] LABS: Troponin I < 50 ng/L (<or=60)
[2022-05-04 07:40] LABS: ALT 61 U/L (16-63); AST 22 U/L (15-37); Albumin 2.5 g/dL (3.4-5.0); Alkaline Phosphatase 115 U/L (46-116); Anion Gap 6.1 mmol/L (3-11); BUN 10 mg/dL (7-18); Bilirubin, Total 0.3 mg/dL (0.2-1.0); C-Reactive Protein 10.17 mg/dL (0.0-0.3); CO2 27.9 mmol/L (21.0-32.0); CREATININE 1.1 mg/dL (0.70-1.30); Calcium 8.5 mg/dL (8.5-10.1); Chloride 102 mmol/L (98-107); Glucose 97 mg/dL (74-106); Potassium 4.3 mmol/L (3.5-5.1); Sodium 136 mmol/L (136-145); Total Protein 6.6 g/dL (6.4-8.2)
--- NOTE | 2022-05-04 08:00 | DI.US_ITS ---
APPROVED REPORT EXAM: Comprehensive 2D, Doppler, and color-flow Echocardiogram Patient Location: In-Patient Room/Bed: 214 Associate Professor Of Violin: Kathleen Charles RDCS (AE) Indications: Pericarditis Other Information Study Quality: Good Conclusion Normal left ventricular wall thickness and chamber size. Estimated ejection fraction is 60%. Wall m otion is normal Normal right ventricular size and systolic function Both atria are normal in size There are no structural valvular abnormalities There is mild mitral and tricuspid regurgitation. Estimated right ventricular systolic pressure is 3 1 mmHg Small circumferential pericardial effusion Wall motion Left Ventricle The left ventricle is normal size. The left ventricular systolic function is normal. The left ventric ular ejection fraction is within the normal range. There is normal left ventricular wall thickness. T here is normal LV segmental wall motion. There is no ventricular septal defect visualized. LVEF is 60 %. Right Ventricle The right ventricle is normal size. The right ventricular systolic function is normal. The RVSP is 31 .0mmHg. Atria The left atrium size is normal. The right atrium size is normal. The interatrial septum is intact wit h no evidence for an atrial septal defect. Aortic Valve The aortic valve is normal in structure. Aortic valve is trileaflet. There is no aortic valvular sten osis. No aortic regurgitation is present. Mitral Valve The mitral valve is normal in structure. No evidence of mitral valve stenosis. Mild mitral regurgitat ion. Tricuspid Valve The tricuspid valve is normal in structure. There is no tricuspid valve stenosis. Mild tricuspid regu rgitation. Pulmonic Valve The pulmonary valve is normal in structure. There is no pulmonic valvular stenosis. Trace pulmonic re gurgitation. Great Vessels The aortic root is normal in size. The ascending aorta is normal in size. Aortic arch is normal in ca liber. The IVC collapses <50% with inspiration. Pericardium Small circumferential pericardial effusion. 2D Dimensions IVSD d PLAX 0.89 cm M: 0.6-1.2 LV Vol A2C d MOD 89.2 mL LVPW d PLAX 0.87 cm M: 0.6 - 1.2 LV Vol A4C d MOD 90.1 mL LVID d PLAX 4.55 cm M: 4.2 - 5.8 LA vol/ BSA A2C s A-L 21.3 mL/m2 LVDs 3.15 cm M: 2.5 - 4.0 LA vol/ BSA A4C s A-L 20.4 mL/m2 Ao Root d 2.56 cm M: 3.1 - 3.7 LA Vol/ BSA Biplane s A-L 21.1 mL/m2 RA Area A4C 14.41 cm2 LA Area A4C s MOD 15.26 cm2 RA Vol/ BSA A4C s A-L 18.3 mL/m2 LA Area A2C s MOD 15.44 cm2 Ao Asc Diam d 2.63 cm M: 2.6 - 3.4 LV EF A4C MOD 60.9 % LV EF Teichholz 57.0 % LV EF A2C MOD 60.5 % LVEF (Plunkett's) 61.09 % M: 52 - 72 LV EF Biplane MOD 61.1 % LV Volume 70.36 mL M: 62 - 150 SV 56.35 mL LV Volume Index 37.03 mL/m2 M: 34 - 74 SV Index 29.62 mL/m2 LV Vol Biplane MOD 92.2 mL FS 29.75 % M-Mode TAPSE 1.70 cm (M/F) >1.7 LV Diastology MV E' medial 0.111 (>0.07 m/s) E/A Ratio 1.8 LV E/e MED 8.70 (<14) MV E Vmax 0.97 (0.4-1.3 m/s) MV E' lateral 0.131 (>0.1 m/s) MV A Vmax 0.55 (0.4-1.3 m/s) LV E/e LAT 7.40 (<14) MV E/A Ratio 1.75 MV E/E' medial 8.74 MV E/E' lateral 7.43 Aortic Valve LVOT Area 2.99 cm2 AoV Area Vmax 2.48 cm2 LVOT Vmax 1.04 m/s AoV Area/ BSA (Vmax) 1.31 cm2/m2 LVOT Mean Monty. 0.68 m/s JN Mean Monyt. 2.23 cm2 LVOT Peak Grad 4.3 mmHg JN Mean Monty. Index 1.17 cm2/m2 LVOT Mean Grad 2.2 mmHg LVOT VTI 0.185 m LVOT Diam s 1.95 cm AoV Vmax 1.25 m/s Velocity Ratio 0.83 AoV Mean Monty. 0.91 m/s AoV Peak Grad 6.3 mmHg LVOT SV 55.25 mL AoV Mean Grad 3.6 mmHg AoV VTI 0.218 m AoV Area VTI 2.54 cm2 AoV Area/ BSA (VTI) 1.33 cm/m2 Mitral Valve MV DT 164 (160-240 msec) MV PHT 48 msec MV Area PHT 4.62 cm2 MV VTI 0.223 m MV Area VTI 2.48 (4.0-6.0 cm2) Pulmonary Valve PV Vmax 0.82 (0.5-1.5 m/s) RVOT Peak Gr. 1.24 mmHg PV Peak Grad 2.7 mmHg RVOT Mean Gr. 0.65 mmHg PV Mean Grad 1.4 mmHg RVOT VTI 0.112 m PV VTI 0.159 m RVOT Vmax 0.56 m/s Tricuspid Valve TR Peak Grad 22.9 mmHg TR Vmax 2.40 m/s RA Pressure 8.00 mmHg RVSP (TR) 31.0 mmHg
[2022-05-04] MEDS: Colchicine 0.6 MG TAB PO (08:56)
[2022-05-04] MEDS: Naproxen 250 MG TAB PO (08:56)
[2022-05-04] MEDS: Esomeprazole 40 MG CAPCR PO (08:57)
[2022-05-04 10:55] LABS: Procalcitonin 3.3 ng/mL
--- NOTE | 2022-05-04 11:21 | W.PM.PROGNOT ---
Date of Service Date of service: 05/04/22 Time of Service: 11:21 Assessment and Plan Assessment and plan (1) Pericarditis: Start date: 05/03/22 Status: Acute Assessment and plan: echo pending scheduled toradol, apap, colchicine Rocephin and doxycycline day 2 He is a full code. (2) Pneumonia: Start date: 05/03/22 Status: Acute Assessment and plan: Imaging did reveal atelectasis and possible basilar pneumonia with patient covered with IV Rocephin and doxycycline. He is having recurrent fever which may be associate with pneumonia but also etiology of pericarditis is still infectious with either virus or tickborne illnesses. Continue follow-up clinically and reimage if needed. I/S, acapella (3) Discharge planning issues: Status: Acute Assessment and plan: will be discharged to home with no services once medically stable. discussed with DR Bird Subjective Subjective Patient reports: still having pain, tolerating liquids well, voiding w/o difficulty and fever (max temp overnight 38.5); denies shortness of breath Exam Const General: cooperative, no acute distress, diaphoretic and ill appearing acutely Nutritional Appearance: thin Orientation: alert, awake and oriented x3 HENMT Head: normal to inspection, normocephalic and atraumatic Mouth: oral mucosae normal Eyes General: appearance normal, both eyes and all related structures Resp Effort & Inspection: normal respiratory effort Auscultation: diminished lung sounds (bases) bilaterally and rhonchi (coarse breath sounds bases) Cardio Rate: regular rate Rhythm: regular rhythm GI Inspection: normal to inspection Palpation: soft Auscultation: normal bowel sounds Skin General skin exam: no rashes or lesions noted Neuro General: patient alert, patient awake, patient oriented x3 and no focal motor deficits Extrem General: normal to inspection, full ROM and no pedal edema Psych Appearance: grossly normal Mental Status: mental status grossly normal Speech and Movement: speech and movement normal Mood: congruent mood Affect: normal affect Attitude: cooperative Thought Process: normal Thought Content: normal Objective Last Vital Signs Temp 36.8 C 05/04/22 07:53 Pulse 85 05/04/22 07:53 Resp 12 05/04/22 07:53 BP 100/67 05/04/22 07:53 Pulse Ox 98 05/04/22 07:53 Laboratory Results - last 24 hr 05/03/22 05/03/22 05/03/22 17:20 17:20 17:20 WBC 7.90 RBC 4.14 L Hgb 12.4 L Hct 35.4 L MCV 86 MCH 30.0 MCHC 35.0 RDW 11.8 Plt Count 268 MPV 9.8 Immature Gran % 0.4 Neutrophils % 71.7 Lymphocytes % 15.3 Monocytes % 12.0 Eosinophils % 0.3 Basophils % 0.3 Nucleated RBC % 0.0 Absolute Neutrophils 5.67 Absolute Lymphocytes 1.21 Absolute Monocytes 0.95 H Absolute Eosinophils 0.02 Absolute Basophils 0.02 ESR VBG Lactate Sodium 132 L Potassium 3.4 L Chloride 98 Carbon Dioxide 26.9 Anion Gap 7.1 BUN 8 Creatinine 1.1 Estimated GFR/1.73 m2 >= 60.00 Glucose 113 H Calcium 8.8 Magnesium Total Bilirubin 0.3 AST 48 H ALT 81 H Alkaline Phosphatase 137 H Troponin I < 50 C-Reactive Protein Total Protein 7.6 Albumin 3.1 L Lipase 86 Procalcitonin TSH Urine Color Urine Clarity Urine pH Ur Specific [place] Urine Protein Urine Ketones Urine Blood Urine Nitrite Urine Bilirubin Urine Urobilinogen Ur Leukocyte Esterase Urine RBC Urine WBC Ur Epithelial Cells Urine Crystals Urine Bacteria Urine Mucus Ur Culture Indicated? Urine Glucose Urine Opiates Screen Urine Methadone Screen Ur Barbiturates Screen Ur Tricyclics Screen Ur Amphetamines Screen U Benzodiazepines Scrn Urine Cocaine Screen Ur THC Screen COVID-19 Source SARS-CoV-2 (PCR) 05/03/22 05/03/22 05/03/22 17:20 17:20 17:30 WBC RBC Hgb Hct MCV MCH MCHC RDW Plt Count MPV Immature Gran % Neutrophils % Lymphocytes % Monocytes % Eosinophils % Basophils % Nucleated RBC % Absolute Neutrophils Absolute Lymphocytes Absolute Monocytes Absolute Eosinophils Absolute Basophils ESR 48 H VBG Lactate Sodium Potassium Chloride Carbon Dioxide Anion Gap BUN Creatinine Estimated GFR/1.73 m2 Glucose Calcium Magnesium Total Bilirubin AST ALT Alkaline Phosphatase Troponin I C-Reactive Protein 11.35 H Total Protein Albumin Lipase Procalcitonin TSH Urine Color Urine Clarity Urine pH Ur Specific [place] Urine Protein Urine Ketones Urine Blood Urine Nitrite Urine Bilirubin Urine Urobilinogen Ur Leukocyte Esterase Urine RBC Urine WBC Ur Epithelial Cells Urine Crystals Urine Bacteria Urine Mucus Ur Culture Indicated? Urine Glucose Urine Opiates Screen Urine Methadone Screen Ur Barbiturates Screen Ur Tricyclics Screen Ur Amphetamines Screen U Benzodiazepines Scrn Urine Cocaine Screen Ur THC Screen COVID-19 Source Nasal/Nares SARS-CoV-2 (PCR) Negative 05/03/22 05/03/22 05/03/22 19:30 19:30 22:30 WBC RBC Hgb Hct MCV MCH MCHC RDW Plt Count MPV Immature Gran % Neutrophils % Lymphocytes % Monocytes % Eosinophils % Basophils % Nucleated RBC % Absolute Neutrophils Absolute Lymphocytes Absolute Monocytes Absolute Eosinophils Absolute Basophils ESR VBG Lactate 1.0 Sodium Potassium Chloride Carbon Dioxide Anion Gap BUN Creatinine Estimated GFR/1.73 m2 Glucose Calcium Magnesium Total Bilirubin AST ALT Alkaline Phosphatase Troponin I C-Reactive Protein Total Protein Albumin Lipase Procalcitonin TSH Urine Color Yellow Urine Clarity Clear Urine pH 7.0 Ur Specific [place] 1.010 Urine Protein Negative Urine Ketones Negative Urine Blood Trace-lysed H Urine Nitrite Negative Urine Bilirubin Negative Urine Urobilinogen 0.2 Ur Leukocyte Esterase Negative Urine RBC 0-2 Urine WBC Negative Ur Epithelial Cells Negative Urine Crystals Negative Urine Bacteria Negative Urine Mucus Negative Ur Culture Indicated? No Urine Glucose Negative Urine Opiates Screen Negative Urine Methadone Screen Negative Ur Barbiturates Screen Negative Ur Tricyclics Screen Negative Ur Amphetamines Screen Negative U Benzodiazepines Scrn Negative Urine Cocaine Screen Negative Ur THC Screen Negative COVID-19 Source SARS-CoV-2 (PCR) 05/03/22 05/03/22 05/04/22 22:36 22:36 06:29 WBC RBC Hgb Hct MCV MCH MCHC RDW Plt Count MPV Immature Gran % Neutrophils % Lymphocytes % Monocytes % Eosinophils % Basophils % Nucleated RBC % Absolute Neutrophils Absolute Lymphocytes Absolute Monocytes Absolute Eosinophils Absolute Basophils ESR VBG Lactate Sodium 136 Potassium 4.3 Chloride 102 Carbon Dioxide 27.9 Anion Gap 6.1 BUN 10 Creatinine 1.1 Estimated GFR/1.73 m2 >= 60.00 Glucose 97 Calcium 8.5 Magnesium 2.0 Total Bilirubin 0.3 AST 22 ALT 61 Alkaline Phosphatase 115 Troponin I < 50 C-Reactive Protein 10.17 H Total Protein 6.6 Albumin 2.5 L Lipase Procalcitonin TSH 1.21 Urine Color Urine Clarity Urine pH Ur Specific [place] Urine Protein Urine Ketones Urine Blood Urine Nitrite Urine Bilirubin Urine Urobilinogen Ur Leukocyte Esterase Urine RBC Urine WBC Ur Epithelial Cells Urine Crystals Urine Bacteria Urine Mucus Ur Culture Indicated? Urine Glucose Urine Opiates Screen Urine Methadone Screen Ur Barbiturates Screen Ur Tricyclics Screen Ur Amphetamines Screen U Benzodiazepines Scrn Urine Cocaine Screen Ur THC Screen COVID-19 Source SARS-CoV-2 (PCR) 05/04/22 05/04/22 05/04/22 06:29 06:29 06:55 WBC 6.84 RBC 3.77 L Hgb 11.3 L Hct 33.0 L MCV 88 MCH 30.0 MCHC 34.2 RDW 12.1 Plt Count 216 MPV 9.6 Immature Gran % 0.4 Neutrophils % 58.7 Lymphocytes % 24.9 Monocytes % 15.1 Eosinophils % 0.6 Basophils % 0.3 Nucleated RBC % 0.0 Absolute Neutrophils 4.02 Absolute Lymphocytes 1.70 Absolute Monocytes 1.03 H Absolute Eosinophils 0.04 Absolute Basophils 0.02 ESR 39 H VBG Lactate Sodium Potassium Chloride Carbon Dioxide Anion Gap BUN Creatinine Estimated GFR/1.73 m2 Glucose Calcium Magnesium Total Bilirubin AST ALT Alkaline Phosphatase Troponin I < 50 C-Reactive Protein Total Protein Albumin Lipase Procalcitonin TSH Urine Color Urine Clarity Urine pH Ur Specific [place] Urine Protein Urine Ketones Urine Blood Urine Nitrite Urine Bilirubin Urine Urobilinogen Ur Leukocyte Esterase Urine RBC Urine WBC Ur Epithelial Cells Urine Crystals Urine Bacteria Urine Mucus Ur Culture Indicated? Urine Glucose Urine Opiates Screen Urine Methadone Screen Ur Barbiturates Screen Ur Tricyclics Screen Ur Amphetamines Screen U Benzodiazepines Scrn Urine Cocaine Screen Ur THC Screen COVID-19 Source SARS-CoV-2 (PCR) 05/04/22 05/04/22 06:55 06:55 WBC RBC Hgb Hct MCV MCH MCHC RDW Plt Count MPV Immature Gran % Neutrophils % Lymphocytes % Monocytes % Eosinophils % Basophils % Nucleated RBC % Absolute Neutrophils Absolute Lymphocytes Absolute Monocytes Absolute Eosinophils Absolute Basophils ESR VBG Lactate 0.7 Sodium Potassium Chloride Carbon Dioxide Anion Gap BUN Creatinine Estimated GFR/1.73 m2 Glucose Calcium Magnesium Total Bilirubin AST ALT Alkaline Phosphatase Troponin I C-Reactive Protein Total Protein Albumin Lipase Procalcitonin 3.3 TSH Urine Color Urine Clarity Urine pH Ur Specific [place] Urine Protein Urine Ketones Urine Blood Urine Nitrite Urine Bilirubin Urine Urobilinogen Ur Leukocyte Esterase Urine RBC Urine WBC Ur Epithelial Cells Urine Crystals Urine Bacteria Urine Mucus Ur Culture Indicated? Urine Glucose Urine Opiates Screen Urine Methadone Screen Ur Barbiturates Screen Ur Tricyclics Screen Ur Amphetamines Screen U Benzodiazepines Scrn Urine Cocaine Screen Ur THC Screen COVID-19 Source SARS-CoV-2 (PCR) PAWSS Have you Been Recently Intoxicated or Drunk Within the Last 30 days?: Yes Have you Ever Experienced Previous Episodes of Alcohol Withdrawal?: No Have you ever Experienced Withdrawal Seizures?: No Have you ever Experienced Delirium Tremens(DT)s?: No Have you ever undergone Alcohol Rehabilitation Treatment (i.e, inpt ot outpatient treatment programs)?: No Have you ever Experienced Blackouts?: No Have you ever Combined Alcohol with other Downers within the last 90 days?: No Have you ever Combined Alcohol with any other Substance of Abuse during the last 90 days?: No Positive Blood Alcohol level on Presentation? [PCS.BAL]: No Evidence of Increased Autonomic Activity (i.e. HR>120, tremor, sweating, agitation, nausea)?: No Result: 1
[2022-05-04] MEDS: ACETAMINOPHEN 1,000 MG/100 ML BTL 400 MG IVPB ×2 (12:19→21:05)
[2022-05-04] MEDS: Ketorolac 15 MG/ML VIAL IVP ×3 (12:21→23:55)
--- NOTE | 2022-05-04 12:38 | PDOC.CMIN ---
- If Service Date Differs Date of service: 05/04/22 Time of Service: 12:38 Care Management Initial Assess REASON FOR HOSPITALIZATION:: Pericarditis, pneumonia PAST MEDICAL HISTORY/PAST SURGICAL HISTORY:: All Active Problems. Pneumonia (Acute). Pericarditis (Acute). Chest pain (Acute). Anxiety (Chronic) PREVIOUS FUNCTIONAL STATUS/SOCIAL/FAMILY SUPPORTS:: Frederic lives in [place] with his s/o, Rochelle. He works at [employer]. He is independent at baseline. CURRENT FUNCTIONAL STATUS:: Frederic is being closely monitored for pericarditis and pneumonia. He is on IV antibiotics currently. He had an echo today with notes small circumferential pericardial effusion. Per provider, he will likely remain inpatient for 1-2 more days, depending on how he responds to treatment. CM will continue to follow. ADVANCE DIRECTIVES:: None on file. Has patient been provided with info about the portal/API?: Yes Did the patient sign up for the portal?: No CODE STATUS:: Full Code INSURANCE COVERAGE / FINANCIAL ISSUES:: BCBS CURRENT HOME/COMMUNITY SERVICES/EQUIPMENT:: None. PRIMARY CARE PHYSICIAN:: Larry Berg POTENTIAL DISCHARGE NEEDS:: Follow up appointments. PATIENT/FAMILY EDUCATION NEEDS:: Review discharge instructions and limitations, discussion of self care needs including ask me three. ANTICIPATED BARRIERS TO DISCHARGE:: None. TRANSPORTATION:: Via private vehicle by family. PLAN:: Anticipate Frederic will return home when medically cleared. He will be driven home via private vehicle. He will follow up with his PCP and discharge plan of care. CM will continue to follow.
[2022-05-04] MEDS: cefTRIAXone 2 GM/50 ML BAG IVPB (21:06)
[2022-05-04 22:00] LABS: Lab Add On Test DONE
[2022-05-05] VITALS: BP 102/69; PULSE 72; RESP 16; TEMP 36.8; O2SAT 96
[2022-05-05] MEDS: DOXYCYCLINE 100 MG in Normal Saline 100 ML IVPB ×2 (02:07→12:49)
[2022-05-05 04:15] VITALS: BP 107/75; PULSE 69; RESP 16; TEMP 37.5; O2SAT 98
[2022-05-05] MEDS: ACETAMINOPHEN 1,000 MG/100 ML BTL 400 MG IVPB ×2 (04:27→12:10)
[2022-05-05] MEDS: MORPHine 2 MG/ML SYR IVP (04:52)
[2022-05-05] MEDS: Normal Saline Flush 10 ML SYR IVP ×3 (04:53→12:22)
[2022-05-05 05:00] VITALS: TEMP 36.5
[2022-05-05] MEDS: Heparin 5,000 UNITS/ML VIAL 5000 UNITS SC (06:29)
[2022-05-05] MEDS: Ketorolac 15 MG/ML VIAL IVP ×2 (06:29→12:21)
[2022-05-05 07:00] VITALS: PULSE 67
[2022-05-05 07:12] LABS: Abs Immature Grans 0.04 10^3/uL (0.0-0.06); Absolute Basophil Count 0.02 10^3/uL (0.0-0.2); Absolute Eosinophil Count 0.09 10^3/uL (0.0-0.7); Absolute Lymphocyte Count 1.58 10^3/uL (1.2-3.4); Absolute Monocyte Count 0.66 10^3/uL (0.1-0.8); Absolute Neutrophil Count 6.14 10^3/uL (1.2-6.7); Basophils % 0.2; Eosinophils % 1.1; HCT 31.5 % (40.0-50.0); HGB 10.8 g/dL (13.5-17.5); Immature Grans % 0.5; Lymphocytes % 18.5; MCH 29.8 pg (27.0-33.0); MCHC 34.3 % (32.0-36.0); MCV 87 fL (80-95); Monocytes % 7.7; Platelet Count 241 10^3/uL (130-400); RBC 3.63 10^6/uL (4.36-5.78); RDW 12.1 % (11.8-14.1); WBC 8.53 10^3/uL (4.4-10.8)
[2022-05-05 07:27] VITALS: BP 106/70; PULSE 65; RESP 14; TEMP 36.3; O2SAT 97
[2022-05-05 07:28] LABS: Anion Gap 8.2 mmol/L (3-11); BUN 13 mg/dL (7-18); C-Reactive Protein 8.49 mg/dL (0.0-0.3); CO2 25.8 mmol/L (21.0-32.0); CREATININE 0.9 mg/dL (0.70-1.30); Calcium 8.9 mg/dL (8.5-10.1); Chloride 103 mmol/L (98-107); Glucose 108 mg/dL (74-106); Potassium 4.2 mmol/L (3.5-5.1); Sodium 137 mmol/L (136-145); Troponin I < 50 ng/L (<or=60)
[2022-05-05] MEDS: Esomeprazole 40 MG CAPCR PO (08:22)
[2022-05-05] MEDS: Colchicine 0.6 MG TAB PO (08:22)
--- NOTE | 2022-05-05 11:09 | DSE_ITS ---
Date of service: 05/05/22 Time of Service: 11:09 DS: Diagnosis Discharge Diagnosis (1) Pericarditis: Status: Acute (2) Pneumonia: Status: Acute Discharge Plan Disposition Patient Disposition: HOME Condition: Improving Discharge Details Reason For Visit: Pericarditis, Pneumonia Admit Date/Time: 05/03/22 22:41 Admit Provider: Christoph Powell Attending Provider: Christoph Powell Primary Care Provider: None,None Hospital Course Hospital Course: This is a 41-year-old male patient who was awakened with atypical chest pain about 2 weeks prior to this admission and reported to the ED thinking that he was having a heart attack.? He was diagnosed with GERD and given a PPI.? He returned again and now with 3-day history of fever with generalized myalgias, fatigue and epigastric as well as retrosternal chest pain especially with deep breathing and certain positions.? He was found to have pericarditis with elevated liver enzymes and elevated inflammatory markers consistent? the diagnosis. He also had a possibility of bilateral pneumonia versus atelectasis and was started on Rocephin with doxycycline with tickborne disease panel pending which will be covered while awaiting further diagnostics.?He was started on colchicine and NSAIDS and his symptoms and inflammatory markers improving. He had an echocardiogram what was normal. serial troponins negative. His vitals remained stable and he remained afebrile. blood cultures negative to date. Tick and lyme panel pending at discharge. He is stable for discharge to home and will be given 5 more days of doxycycline and cefpodoxime to complete a 7 day course. Will need to reassess course after tick panel returned. Will need colchicine for to complete a 3 month course, will defer to outpatient team to follow up with. discharge discussed with Dr Bird Home Meds and New Rx's Prescriptions: New colchicine [Colcrys] 0.6 mg Tablet 0.6 mg PO BID Qty: 60 0RF doxycycline hyclate 100 mg capsule 100 mg PO BID Qty: 11 0RF cefpodoxime 200 mg tablet 200 mg PO BID Qty: 11 0RF Rx Instructions: must administer with a meal/food naproxen 500 mg tablet 500 mg PO BID Qty: 30 0RF Continued esomeprazole magnesium [Nexium 24HR] 20 mg capsule,delayed release(DR/EC) 40 mg PO DAILY acetaminophen [Tylenol] 325 MG tablet 650 mg PRN Discharge Instructions Instructions: Acute Pericarditis (DC), Pneumonia (DC) Stand Alone Forms: Nursing Discharge Form Referrals: Larry Berg [facility] [NURSE PRACTITIONER] - 05/11/22 2:20 pm () Activity:: Activity as Tolerated Equipment/Supplies:: No Equipment Needed Diet:: As Tolerated Discharge Orders Discharge Orders: Discharge Order (Routine); Ordered 05/05/22 Ordered By: Marjorie Landers Discharge Data Discharge Date/Time-TO BE ENTERED AT DEPARTURE: 05/05/22 14:19 DS: Summary Time Spent with Patient providing and/or coordinating discharge services: Less than 30 minutes Status at Discharge Functional status at discharge: independent ambulation Overall status at discharge: patient is progressing back to baseline Mental Status: mental status grossly normal Speech and Movement: speech and movement normal Mood: congruent mood Affect: normal affect Exam Const General: cooperative and no acute distress Nutritional Appearance: thin Orientation: alert, awake and oriented x3 HENMT Head: normal to inspection, normocephalic and atraumatic Mouth: oral mucosae normal Eyes General: appearance normal, both eyes and all related structures Resp Effort & Inspection: normal respiratory effort Auscultation: diminished lung sounds (bases) bilaterally Cardio Rate: regular rate Rhythm: regular rhythm GI Inspection: normal to inspection Palpation: soft Auscultation: normal bowel sounds Skin General skin exam: no rashes or lesions noted Neuro General: patient alert, patient awake, patient oriented x3 and no focal motor deficits Extrem General: normal to inspection, full ROM and no pedal edema Psych Appearance: grossly normal Mental Status: mental status grossly normal Speech and Movement: speech and movement normal Mood: congruent mood Affect: normal affect Attitude: cooperative Thought Process: normal Thought Content: normal DS: Data Vitals/I&O Vitals and I&O: Vital Signs Temperature 36.3 C L 05/05/22 07:27 Temperature Source Tympanic 05/05/22 07:27 Pulse 65 05/05/22 07:27 Pulse Rhythm Regular 05/05/22 07:30 Respiratory Rate 14 05/05/22 07:27 Respiratory Effort Non-Labored 05/05/22 07:30 Respiratory Depth Normal 05/05/22 07:30 Respiratory Pattern Normal 05/05/22 07:30 Blood Pressure 106/70 05/05/22 07:27 Blood Pressure Position Sitting 05/03/22 16:46 Pulse Oximetry 97 05/05/22 07:27 Oxygen Delivery Method Room Air 05/05/22 07:27 Oxygen Flow Rate 0 05/05/22 07:27 Pain Level 4 05/05/22 07:27 Intake & Output 05/04/22 05/04/22 05/05/22 11:59 23:59 11:59 Intake Total 1200 / 2492 1292 / 2492 400 / 400 Output Total 850 / 1451 601 / 1451 600 / 600 Balance 350 / 1041 691 / 1041 -200 / -200 Weight 70.2 kg Intake: IV 400 / 750 350 / 750 200 / 200 Oral 800 / 1742 942 / 1742 200 / 200 Output: Urine 850 / 1451 601 / 1451 600 / 600 Other: Urine Color Light Faye Yellow Yellow Urine Appearance Clear Clear Clear Urine Odor Normal None None Voiding Methods Urinal Toilet Urinal Data Completed and Pending Labs on day of discharge: Labs from last 24 hours 05/05/22 05/05/22 05/04/22 06:54 06:54 06:55 WBC 8.53 RBC 3.63 L Hgb 10.8 L Hct 31.5 L MCV 87 MCH 29.8 MCHC 34.3 RDW 12.1 Plt Count 241 MPV 10.0 Immature Gran % 0.5 Neutrophils % 72.0 Lymphocytes % 18.5 Monocytes % 7.7 Eosinophils % 1.1 Basophils % 0.2 Nucleated RBC % 0.0 Absolute Neutrophils 6.14 Absolute Lymphocytes 1.58 Absolute Monocytes 0.66 Absolute Eosinophils 0.09 Absolute Basophils 0.02 Sodium 137 Potassium 4.2 Chloride 103 Carbon Dioxide 25.8 Anion Gap 8.2 BUN 13 Creatinine 0.9 Estimated GFR/1.73 m2 >= 60.00 Glucose 108 H Calcium 8.9 Troponin I < 50 C-Reactive Protein 8.49 H Add-On Test Request DONE Preliminary micro results at discharge 05/03/22 22:30 Blood Culture - Preliminary Blood NO GROWTH 24 HOURS 05/03/22 17:30 Blood Culture - Preliminary Blood NO GROWTH 24 HOURS PFSH All Active Problems (Updated 05/04/22 @ 11:28 by Marjorie Landers NP) Discharge planning issues (Acute) Pneumonia (Acute) Pericarditis (Acute) Chest pain (Acute) Anxiety (Chronic) Social History Smoking/Tobacco Use Status: Current every day Tobacco Type: cigarettes Smoking risk assessment performed?: Yes Alcohol Intake: current Alcohol Intake frequency: a few times a week Drug use: Occasionally Substance use type: marijuana and crack/cocaine Do you feel safe at home: Yes Do you feel safe in your relationship?: Yes
[2022-05-05 11:26] LABS: Lyme Ab w Rflx to Lyme Confirm Negative (Negative)
[2022-05-05 11:30] VITALS: PULSE 74
[2022-05-05] MEDS: Normal Saline 500 ML 30 ML IV (12:14)
--- NOTE | 2022-05-05 15:11 | CHAPLAIN ---
Frederic was waiting to be discharged when I visited. He expected to be discharged once he current IV bag ran out. He was pleasant and engaged in a short conversation and was looking forward to getting home.
--- NOTE | 2022-05-05 17:25 | PDOC.CMDIS ---
- If Service Date Differs Date of service: 05/05/22 Time of Service: 17:25 LACE Index Scoring Tool - Questions: Length of Stay (in days): 2 Acuity (Admit via E.D.?): Yes E.D. Visits: 2 - Answers: Total Score: 7 Risk of Readmission: Low Risk Care Management Discharge Reason for Hospitalization: Pericarditis, pneumonia Discharge Plan: Frederic returned home today with no new services. He was transported home via private vehicle by family. He will follow up with his PCP and discharge plan of care. CM offered a return to work letter stating that per provider, he will be evaluated to be released to return to work from his PCP at his follow up appointment. Patient/Family Education Needs: Review discharge instructions and limitations, discussion of self care needs including ask me three.
[2022-05-09 18:50] LABS: Anaplasma phagocytophilum Negative (Negative); B. miyamotoi PCR Negative (Negative); Babesia divergens/MO-1 Negative (Negative); Babesia duncani Negative (Negative); Babesia microti Negative (Negative); Ehrlichia chaffeensis Negative (Negative); Ehrlichia ewingii/canis Negative (Negative); Ehrlichia muris eauclairensis Negative (Negative)
== END 2022-05-05 14:19 | disposition home or self-care (01) | DRG 314 ==
LOC: ER 23:42 → MS 23:44
PROVIDERS: Internal Medicine; Nurse Practitioner Acute Care; Admitting Provider Family Medicine; Emergency Provider Physician Assistant; Visit Provider Family Medicine
DX: I30.1 Infective pericarditis (principal); J18.9 Pneumonia, unspecified organism; J98.11 Atelectasis; F41.9 Anxiety disorder, unspecified; F12.90 Cannabis use, unspecified, uncomplicated; F14.90 Cocaine use, unspecified, uncomplicated; R07.89 Other chest pain
CPT/HCPCS: 36415; 80048; 80053; 80307; 83690; 84145; 85652; 87040; 87635; 87798; 93005; 93306; 96361; 96365; 96375; 99284; 99285; 71045; 74176; 81003; 81015; 83605; 83735; 84443; 84484; 85025; 86140; 86618; 93010; 94667; 99223; 99232; 99238; J0131; J0456; J1644; J1885; J2270

== ENCOUNTER 2022-05-23 02:58 | Outpatient (CLI) | payer BC, SELFPAY ==
[2022-05-23 15:46] LABS: Source Nasal/Nares
[2022-05-23 20:55] LABS: COVID-19 PCR Negative (Negative)
== END 2022-05-23 02:59 | disposition home or self-care (01) ==
LOC: LBO 02:58
PROVIDERS: PCP Nurse Practitioner Family; Visit Provider Surgery
DX: Z20.822 Contact with and (suspected) exposure to COVID-19 (principal); Z01.818 Encounter for other preprocedural examination
CPT/HCPCS: 87635

== ENCOUNTER 2022-05-25 12:47 | Day surgery (SDC) | payer BC, SELFPAY ==
--- NOTE | 2022-05-25 11:29 | W.PM.DSUDISC ---
Discharge Plan Disposition Patient Disposition: HOME Condition: Good Discharge Details Reason For Visit: EGD Attending Provider: Amol Weldon Primary Care Provider: Larry Berg Home Meds and New Rx's Prescriptions: New esomeprazole magnesium [Nexium 24HR] 20 mg capsule,delayed release(DR/EC) 40 mg PO BID Qty: 60 0RF Rx Instructions: take 40 mg by mouth two times per day for one month, then go back to once daily Continued acetaminophen [Tylenol] 325 MG tablet 650 mg PRN colchicine [Colcrys] 0.6 mg Tablet 0.6 mg PO BID Qty: 60 0RF naproxen 500 mg tablet 500 mg PO BID Qty: 30 0RF Discontinued esomeprazole magnesium [Nexium 24HR] 20 mg capsule,delayed release(DR/EC) 40 mg PO DAILY Discharge Instructions Instructions: Upper Endoscopy (DC) Additional Instructions: 1. If tolerated, consume a soft, low fiber diet for 1-2 days. [address] not [address], drink alcohol, operate machinery, make critical decisions, or do activities that require coordination or balance for 24 hours. 3. You may experience a sore throat for 24 to 48 hours. You may use throat lozenges or gargle with warm salt water to relieve the discomfort. 4. Because air was put into your stomach during the procedure, you may experience some belching. 5. Go directly to the emergency room if you notice any of the following: Develop chills (warm to touch), or if you have a thermometer and your temperature is above 101 Difficulty breathing or difficultly swallowing Persistent vomiting Severe abdominal pain, other than gas cramps Severe chest pain Black, tarry stools Any bleeding ? exceeding one tablespoon 6. Call your physician if the site where your intravenous was started becomes red, swollen, painful, and warm to touch. 7. Your physician has reviewed your pre-procedure medications. Please continue to take those medications as previously ordered. You will be given specific information/education regarding any changes to your medications before leaving. 8. Increase your nexium dosing to twice daily for 1 month Referrals: Larry Berg, DR[facility] RECRUITER [Primary Care Provider] - Activity:: Activity as Tolerated Diet:: As Tolerated Discharge Orders Discharge Orders: Discharge Order (Routine); Ordered 05/25/22 Ordered By: Amol Weldon DS: Diagnosis Discharge Diagnosis (1) Gastric ulcer: Status: Acute Asessment and Plan: increase nexium to twice daily my office will call with the results of your biopsies
--- NOTE | 2022-05-25 11:30 | ENDO_ITS ---
Date of service: 05/25/22 Time of Service: 15:37 Endoscopy Report DATE OF PROCEDURE: 05/25/22 PRE-OP DIAGNOSIS: gastritis POST-OP DIAGNOSIS: other (gastritis with gastric ulcer) PROCEDURE: EGD SURGEON: Amol Weldon ANESTHESIA TYPE: General:No Airway ESTIMATED BLOOD LOSS: 20 PATHOLOGY: other (duodenal, antral and gastric ulcer biopsies) COMPLICATIONS: None DISPOSITION: same day INDICATIONS: Frederic is a 41-year-old male with longstanding gastroesophageal reflux disease. He had a mild exacerbation of his symptoms despite ongoing PPI therapy. PROCEDURE START TIME: 15:16 PROCEDURE END TIME: 15:24 FINDINGS: Gastritis with active gastric ulcer PROCEDURE DESCRIPTION: After the initiation of monitored anesthetic care, and with the assistance of a bite block, I advanced a standard gastroscope through the mouth past the hypopharynx and into the esophagus.? Under the direct vision of the scope, I advanced down the esophagus into the stomach.? Once I entered the stomach, I performed a brief inspection, followed by retroflexion towards the gastric cardia.? There was some gastritis towards the lesser curvature, and an active gastric ulcer opposite that. It appeared less than 1 cm in diameter. There was no visible vessel. I performed a biopsy with cold forceps. There was minimal bleeding. After that, I gently advanced the scope around the incisura angularis and examined the pylorus.? This appeared normal.? Next, I advanced the scope through the pylorus into the duodenum.? The mucosa was pink and healthy appearing.? There were no abnormalities.? I was able to visualize bile draining into the duodenum through the ampulla Vater. ?Next, I began retracting the endos cope.? Again, I returned to the stomach which was carefully examined once again.? I then gently desufflated some of the stomach, and withdrew the endoscope into the distal esophagus. During retroflexion, I did not see any evidence of a hiatal hernia. Similarly, but I withdrew the scope into the esophagus the Z-line was normal-appearing around 40 cm. Again, while watching the GE junction, I saw no evidence of a hiatal hernia. Finally, I withdrew the scope along the length of the esophagus taking great care to examine the entirety of the mucosa.? I did not appreciate any abnormalities.
[2022-05-25 13:37] VITALS: BP 107/74; PULSE 66; RESP 16; TEMP 36.6; O2SAT 99
[2022-05-25] MEDS: Lactated Ringers 1,000 ML 80 ML IV (13:55)
--- NOTE | 2022-05-25 14:41 | W.ANESPRE ---
General Info Date of Service Date Performed: 05/25/22 Height: 5 ft 11 in Weight: 69.6 kg Body Mass Index (BMI): 21.4 Surgical Procedure: Operation Date: 05/25/22 15:20 Proposed Procedure Side Surgeon p Gastroscopy Amol Weldon MD Meds Allergies and Home Medications Allergies Allergy/AdvReac Type Severity Reaction Status Date / Time No Known Allergies Allergy Verified 05/25/22 13:32 Home Medication Medication Instructions Recorded acetaminophen 325 mg tablet 650 mg PRN 01/28/14 (Tylenol) esomeprazole magnesium 20 mg 40 mg PO DAILY 06/01/20 capsule,delayed release (Nexium 24HR) colchicine 0.6 mg tablet (Colcrys) 0.6 mg PO BID #60 tabs 05/05/22 naproxen 500 mg tablet 500 mg PO BID #30 tabs 05/05/22 Current Visit Medications: Current Medications Generic Name Dose Route Start Last Admin Trade Name Freq PRN Reason Stop Dose Admin Ringer's Solution 1,000 mls @ 80 mls/hr 05/25/22 06:00 05/25/22 13:55 IV 06/23/22 23:59 80 mls/hr INFUSION KONG Administration IV Miscellaneous Supplies 1 each 05/25/22 06:00 Iv Access IV 06/23/22 23:59 DIRECTED KONG Sodium Chloride 0 ml 05/25/22 06:00 Normal Saline Flush 10 Ml Syr IV 06/23/22 23:59 PRN PRN Sodium Chloride 0 ml 05/25/22 06:00 Normal Saline 10 Ml Vial IJ 06/23/22 23:59 DIRECTED PRN Sterile Water 0 ml 05/25/22 06:00 Water,Injection,Sterile 10 Ml Vial IJ 06/23/22 23:59 DIRECTED PRN PFSH Active Problems Active Problems: Problem Status Onset Code Abdominal pain R10.9 Pneumonia J18.9 Pericarditis I31.9 Anxiety F41.9 Medical History Medical History Gastritis Surgical History Surgical History S/P appendectomy Tobacco Smoking/Tobacco Use Status: Current every day Tobacco Type: cigarettes Alcohol Alcohol Intake: current Alcohol intake frequency: a few times a week Substance Use Substance use: Occasionally Substance use type: marijuana and crack/cocaine Vital Signs and Lab Results Vital Signs Most Recent Vital Signs in EMR: Most Recent Vital Signs Temp Pulse Resp BP Pulse Ox 36.6 C 66 16 107/74 99 05/25/22 13:37 05/25/22 13:37 05/25/22 13:37 05/25/22 13:37 05/25/22 13:37 Lab Results Blood Type / Crossmatch: No Data to Display Complete Blood Count: White Blood Count 8.53 10^3/uL (4.4-10.8) 05/05/22 06:54 Red Blood Count 3.63 10^6/uL (4.36-5.78) L 05/05/22 06:54 Hemoglobin 10.8 g/dL (13.5-17.5) L 05/05/22 06:54 Hematocrit 31.5 % (40.0-50.0) L 05/05/22 06:54 Platelet Count 241 10^3/uL (130-400) 05/05/22 06:54 Venous Blood Lactate 0.7 mmol/L (0.6-1.4) 05/04/22 06:55 Complete Metabolic Panel: Sodium Level 137 mmol/L (136-145) 05/05/22 06:54 Potassium Level 4.2 mmol/L (3.5-5.1) 05/05/22 06:54 Chloride Level 103 mmol/L (98-107) 05/05/22 06:54 Carbon Dioxide Level 25.8 mmol/L (21.0-32.0) 05/05/22 06:54 Blood Urea Nitrogen 13 mg/dL (7-18) 05/05/22 06:54 Creatinine 0.9 mg/dL (0.70-1.30) 05/05/22 06:54 Estimated GFR/1.73 m2 >= 60.00 (mL/min/1.73m2) 05/05/22 06:54 Magnesium Level 2.0 mg/dL (1.8-2.4) 05/03/22 22:36 Calcium Level 8.9 mg/dL (8.5-10.1) 05/05/22 06:54 Albumin 2.5 g/dL (3.4-5.0) L 05/04/22 06:29 Glucose Level 108 mg/dL (74-106) H 05/05/22 06:54 C-Reactive Protein 8.49 mg/dL (0.0-0.3) H 05/05/22 06:54 Liver Function Panel: Alanine Aminotransferase (ALT/SGPT) 61 U/L (16-63) 05/04/22 06:29 Aspartate Amino Transf (AST/SGOT) 22 U/L (15-37) 05/04/22 06:29 Coagulation Panel: No Data to Display Cardiac Panel: Troponin I < 50 ng/L (<or=60) 05/05/22 Arterial Blood Gas: No Data to Display Venous Blood Gas: No Data to Display Pancreas Panel: Lipase 86 U/L (73-393) 05/03/22 17:20 Thyroid Panel: Thyroid Stimulating Hormone (TSH) 1.21 uIU/mL (0.36-3.74) 05/03/22 22:36 Infectious Disease: Coronavirus (COVID-19)(PCR) Negative (Negative) 05/23/22 15:20 Coronavirus 2019 Source Nasal/Nares 05/23/22 15:20 Blood Cultures: No Data to Display Toxicology Panel: Urine Amphetamines Screen Negative (Negative) 05/03/22 19:30 Urine Benzodiazepines Screen Negative (Negative) 05/03/22 19:30 Urine Barbiturates Screen Negative (Negative) 05/03/22 19:30 Urine Cocaine Screen Negative (Negative) 05/03/22 19:30 Urine Methadone Screen Negative (Negative) 05/03/22 19:30 Urine Opiates Screen Negative (Negative) 05/03/22 19:30 Ur Tricyclic Antidepressants Screen Negative (Negative) 05/03/22 19:30 Ur Tetrahydrocannabinol (THC) Scrn Negative (Negative) 05/03/22 19:30 Imaging and Studies Imaging and Studies Study information below may be from another EMR and interpreted by another provider. Please see original notes in EMR for more complete details. Echocardiogram Summary: 05/04/22:Normal left ventricular wall thickness and chamber size. Estimated ejection fraction is 60%. Wall motion is normal Normal right ventricular size and systolic function Both atria are normal in size There are no structural valvular abnormalities There is mild mitral and tricuspid regurgitation. Estimated right ventricular systolic pressure is 31 mmHg Small circumferential pericardial effusion Anesthesia Assessment and Plan Anesthesia History Personal History: No History of Anesthesia Complications Family History: No Family History of Anesthesia Complications Exercise Tolerance Exercise Tolerance: Metabolic Equivalents>4 Cardiac & Pulmonary Exam Cardiac Exam: Normal S1/S2 Heart Sounds Pulmonary Exam: Clear Bilateral Breath Sounds Implantable Cardiac Device Does patient have a Pacemaker or an ICD?: No Airway Exam Known Difficult Airway: No Mallampati Class: 2 Mouth Opening: Normal (> 3cm) Thyromental Distance: Greater than 3 cm Neck Range of Motion: Full ROM Neck Circumference: Normal Teeth Condition: Normal Dentition ASA Classification ASA Score: ASA 2 Emergency Case?: No NPO Status NPO Status: NPO Clears >2 hours, Solids >8 hours Anesthesia Plan Resuscitation Status: Full Code Anesthesia Technique: General Anesthesia Airway Planned: Natural Airway Monitors Used: Standard Monitors Preoperative Comments:: 41 yo male for EGD due to GERD. Sig PMHx; small pericardial effusion, GERD denies other major.
[2022-05-25 14:42] VITALS: BMI 21.4
--- NOTE | 2022-05-25 15:18 | STOM_PTH ---
PATIENT: Frederic Biggs LOC: [facility] U#:[id number] AGE/SX: 41/M ROOM: RE05/25/[address]: Amol Weldon MD : 1980 BED: DIS: 05/25/2022 SPEC #: [id number] RECD: 05/25/22 17:49 STATUS: AMAIRANI RE #: [id number] JORDEN: 05/25/22 15:[address]: Amol Weldon DEPT: Surgical Specimen RECD BY: Komal Thapa ENTERED: 05/25/22 17:50 SP TYPE: STOMACH OTHR DR: Larry Berg, QUANTITATIVE ANALYST Tissues: 1 - BIOPSY BOWEL 2 - STOMACH BIOPSY 3 - STOMACH BIOPSY Procedures: GROSS AND MICRO LEVEL 4 Comments: [id number]
[2022-05-25 15:34] VITALS: BP 110/75; PULSE 70; RESP 16; TEMP 36.4; O2SAT 97
--- NOTE | 2022-05-25 15:56 | W.ANESPOSTOP ---
Postoperative Evaluation Date, Time and Location Date Performed: 05/25/22 Time Performed: 15:56 Patient Location: Day Surgery Unit Vital Signs Most Recent Imported Vital Signs: Most Recent Vital Signs Temp Pulse Resp BP Pulse Ox 36.4 C L 70 16 110/75 97 05/25/22 15:34 05/25/22 15:34 05/25/22 15:34 05/25/22 15:34 05/25/22 15:34 Pain Score Most Recent Pain Score: Most Recent Pain Score Pain Level 0 05/25/22 15:34 Assessment Mental Status: Awake (Alert & Oriented to Patient Baseline) Airway and Respiratory Function: Patent airway with normal (patient baseline) respiratory exam Cardiovascular Function: Hemodynamically Stable Hydration Status: Adequately Hydrated Nausea & Vomiting: No Nausea or Vomiting Pain: Pt. Denies Any Pain Peripheral Nerve Block: Patient did not receive a nerve block
[2022-05-25 16:06] VITALS: BP 111/74; PULSE 63; RESP 16; TEMP 36.3; O2SAT 100
== END 2022-05-25 16:44 | disposition home or self-care (01) ==
PROVIDERS: PCP Nurse Practitioner Family; Visit Provider Surgery
PROC: 0DJ68ZZ Inspection of Stomach, Via Natural or Artificial Opening Endoscopic (ICD-10-PCS; CPT 43235; principal; 2022-05-25 15:15)
DX: K29.70 Gastritis, unspecified, without bleeding (principal); K25.9 Gastric ulcer, unspecified as acute or chronic, without hemorrhage or perforation; K31.89 Other diseases of stomach and duodenum
CPT/HCPCS: 43239; 88305

== ENCOUNTER 2022-08-08 10:44 | Outpatient (CLI) | payer BC, SELFPAY ==
--- NOTE | 2022-08-08 10:30 | RT.EKG_ITS ---
APPROVED REPORT Exam: Resting ECG Reason for Exam: chest discomfort Patient Location: O HR:74 bpm ECG Measurements Heart Rate 74 AXIS MN 130 P 53 QRSd 70 QRS 64 QT 357 T 50 QTc 396 Conclusion Sinus rhythm...normal P axis, V-rate 50- 99 Left ventricular hypertrophy...multiple voltage criteria
== END 2022-08-08 10:45 | disposition home or self-care (01) ==
LOC: DI.CM 10:45
PROVIDERS: PCP Nurse Practitioner Family; Visit Provider Nurse Practitioner Family
DX: R07.89 Other chest pain (principal); R94.31 Abnormal electrocardiogram [ECG] [EKG]
CPT/HCPCS: 93010

== ENCOUNTER 2022-08-08 11:34 | Emergency (ER) | payer BC, SELFPAY ==
--- NOTE | 2022-08-08 11:30 | RT.EKG_ITS ---
APPROVED REPORT Exam: Resting ECG Reason for Exam: chest pain Patient Location: E HR:78 bpm ECG Measurements Heart Rate 78 AXIS NM 119 P 65 QRSd 72 QRS 62 QT 357 T 48 QTc 406 Conclusion Sinus rhythm...normal P axis, V-rate 60- 99 Probable left atrial enlargement...P >50mS, <-0.10mV V1 Probable left ventricular hypertrophy...multiple LVH criteria ST elev, probable normal early repol pattern...ST elevation, age<55
[2022-08-08 11:41] VITALS: BP 121/96; PULSE 71; RESP 18; TEMP 37.1; O2SAT 100
--- NOTE | 2022-08-08 14:03 | ED.GENADUL_ITS ---
Discharge Plan Disposition Patient Disposition: HOME Condition: Stable Discharge Details Chief Complaint: PsychEval Clinical Impression: Depression, Anxiety, Chest discomfort Primary Care Provider: Larry Berg ED Provider: Santnaa Dominguez Home Meds and New Rx's Prescriptions: Continued esomeprazole magnesium [Nexium 24HR] 20 mg capsule,delayed release(DR/EC) 40 mg PO BID Qty: 60 0RF Rx Instructions: take 40 mg by mouth two times per day for one month, then go back to once daily Discontinued acetaminophen [Tylenol] 325 MG tablet 650 mg PRN colchicine [Colcrys] 0.6 mg Tablet 0.6 mg PO BID Qty: 60 0RF naproxen 500 mg tablet 500 mg PO BID Qty: 30 0RF No Action sertraline 50 mg tablet 50 mg PO DAILY Qty: 90 0RF Discharge Instructions Instructions: Depression (ED), Anxiety (ED) Additional Instructions: Please contact your primary care physician to arrange follow-up. Call tomorrow. [place] [email or web address]. Call tomorrow to schedule follow-up. Please remove all firearms from your home and store them securely at a friend or relatives home until you were cleared by your primary care physician. Return to the ER immediately for any worsening or new concerning symptoms. Stand Alone Forms: Work Release Referrals: [facility] [email or web address] [Outside] Larry Berg, HEALTH SERVICES DIRECTOR [Primary Care Provider] - Discharge Data Discharge Date/Time-TO BE ENTERED AT DEPARTURE: 08/08/22 17:19 Medical Decision Making 1400 --41-year-old male here with depression and anxiety, severe at times, some passive suicidal thoughts with no plan. Screening EKG was reviewed and interpreted by me: Please see report, sinus rhythm 78 bpm, LVH and left atrial enlargement, early repull pattern is present, no STEMI. I will check screening labs. No acute screening human services crisis screener was consulted and evaluated the patient. They do not feel patient meets criteria for hospitalization. They offered outpatient resources and patient declined. 1518 --labs reviewed and nondiagnostic. Plan for discharge with outpatient follow-up. patient does have firearms in the house and I recommended these be removed and secured at a family or friend's house. Lab Data Lab results reviewed: Yes I reviewed the patient's lab results. Labs: Laboratory Tests Range/Units 08/08/22 08/08/22 14:00 14:00 WBC (4.4-10.8) 10^3/uL 7.91 RBC (4.36-5.78) 10^6/uL 5.00 Hgb (13.5-17.5) g/dL 14.6 Hct (40.0-50.0) % 43.4 MCV (80-95) fL 87 MCH (27.0-33.0) pg 29.2 MCHC (32.0-36.0) % 33.6 RDW (11.8-14.1) % 13.5 Plt Count (130-400) 10^3/uL 233 MPV (8.0-11.0) fL 9.2 Immature Gran % 0.3 Neutrophils % 53.8 Lymphocytes % 35.4 Monocytes % 6.1 Eosinophils % 3.9 Basophils % 0.5 Nucleated RBC % (0.0-0.3) % 0.0 Absolute Neutrophils (1.2-6.7) 10^3/uL 4.26 Absolute Lymphocytes (1.2-3.4) 10^3/uL 2.80 Absolute Monocytes (0.1-0.8) 10^3/uL 0.48 Absolute Eosinophils (0.0-0.7) 10^3/uL 0.31 Absolute Basophils (0.0-0.2) 10^3/uL 0.04 Sodium (136-145) mmol/L 141 Potassium (3.5-5.1) mmol/L 3.9 Chloride (98-107) mmol/L 104 Carbon Dioxide (21.0-32.0) mmol/L 28.3 Anion Gap (3-11) mmol/L 8.7 BUN (7-18) mg/dL 13 Creatinine (0.70-1.30) mg/dL 1.1 Est GFR (CKD-EPI 2020) (mL/min/1.73m2) 87.57 Glucose (74-106) mg/dL 95 Calcium (8.5-10.1) mg/dL 9.2 Total Bilirubin (0.2-1.0) mg/dL 0.3 AST (15-37) U/L 16 ALT (16-63) U/L 22 Alkaline Phosphatase (46-116) U/L 61 Troponin I (<or=60) ng/L < 50 Total Protein (6.4-8.2) g/dL 7.8 Albumin (3.4-5.0) g/dL 4.2 TSH (0.36-3.74) uIU/mL 1.07 HPI General Mode of arrival: ambulatory . Date/Time Provider Initiated Documentation: 08/08/22 13:05 . Limitations to Documentation: no limitations . Information obtained by: patient . HPI Narrative: 41-year-old male presents with chief complaint of depression. Patient notes she has been feeling intermittent depression with thoughts of hopelessness at least once a week. He has excessive fatigue at times and has trouble getting out of bed. Patient has no specific suicidal plan but does note at times he wonders if life is worth living. Patient does have firearms in his home. Patient is concerned that a lot of his symptoms started after having COVID back in December. He is also concerned with the potential that his celiac disease is exacerbating his symptoms. Patient does note that he has intermittent chest discomfort described as heaviness and also having dizziness and shortness of breath last night. He attributes this to his anxiety. He notes he did have an anxiety attack last night. Patient has no chest pain at this time. Patient has no chest pain at this time. Related Data Home Medications Medication Instructions Recorded Confirmed esomeprazole magnesium 20 mg 40 mg PO BID #60 caps 05/25/22 08/09/22 capsule,delayed release (Nexium 24HR) sertraline 50 mg tablet 50 mg PO DAILY #90 tabs 08/09/22 08/09/22 Previous Rx's Medication Instructions Recorded esomeprazole magnesium 20 mg 40 mg PO BID #60 caps 05/25/22 capsule,delayed release (Nexium 24HR) sertraline 50 mg tablet 50 mg PO DAILY #90 tabs 08/09/22 Allergies Allergy/AdvReac Type Severity Reaction Status Date / Time No Known Allergies Allergy Verified 08/09/22 10:48 General Stated Complaint: PsychEval JUAN ALBERTO: 3 PFSH All Active Problems (Updated 08/08/22 @ 15:21 by Santana Dominguez MD) Depression (Chronic) Chest discomfort (Acute) Celiac disease (Acute) Gastric ulcer (Acute) Abdominal pain (Acute) Pneumonia (Acute) Pericarditis (Acute) Anxiety (Chronic) Medical History Gastritis Surgical History History of esophagogastroduodenoscopy (EGD) (~05/2022) S/P appendectomy Family History Father Hiatal hernia Social History Smoking/Tobacco Use Status: Current every day Tobacco Type: cigarettes Smoking risk assessment performed?: Yes Alcohol Intake: current Alcohol Intake frequency: a few times a week Drug use: Occasionally Substance use type: marijuana and crack/cocaine Do you feel safe at home: Yes Do you feel safe in your relationship?: Yes Exam Const General: cooperative HENMT Mouth: moist mucous membranes Eyes Conjunctivae: normal conjunctivae Sclera: normal sclerae Neck Neck: trachea midline and supple Resp Auscultation: clear to auscultation bilaterally, no rales, no rhonchi and no wheezes Cardio Rate: regular rate and not tachycardic Rhythm: regular rhythm GI Palpation: soft, not firm, no guarding, no masses, not rigid and nontender Skin General skin exam: no rashes or lesions noted Neuro General: patient alert, patient awake, patient oriented x3 and tone normal Extrem General: no edema Psych Appearance: grossly normal Mental Status: mental status grossly normal and other (depressed) Mood: other (depressed) Course Vital Signs Vital signs: Vital Signs Temperature 37.1 C 08/08/22 11:41 Pulse 71 08/08/22 11:41 Respiratory Rate 18 08/08/22 11:41 Blood Pressure 121/96 H 08/08/22 11:41 Pulse Oximetry 100 08/08/22 11:41 Temperature 37.1 C 08/08/22 11:41 Temperature Source Oral 08/08/22 11:41 Pulse 71 08/08/22 11:41 Respiratory Rate 18 08/08/22 11:41 Respiratory Effort 08/08/22 11:47 Blood Pressure 121/96 H 08/08/22 11:41 Blood Pressure Position Supine 08/08/22 11:41 Pulse Oximetry 100 08/08/22 11:41 Oxygen Delivery Method Room Air 08/08/22 11:41 Oxygen Flow Rate 0 08/08/22 11:41 Pain Level 6 08/08/22 11:41 PAWSS Have you Been Recently Intoxicated or Drunk Within the Last 30 days?: No Have you Ever Experienced Previous Episodes of Alcohol Withdrawal?: No Have you ever Experienced Withdrawal Seizures?: No Have you ever Experienced Delirium Tremens(DT)s?: No Have you ever undergone Alcohol Rehabilitation Treatment (i.e, inpt ot outpatient treatment programs)?: No Have you ever Experienced Blackouts?: No Have you ever Combined Alcohol with other Downers within the last 90 days?: No Have you ever Combined Alcohol with any other Substance of Abuse during the last 90 days?: No Positive Blood Alcohol level on Presentation? [PCS.BAL]: No Evidence of Increased Autonomic Activity (i.e. HR>120, tremor, sweating, agitation, nausea)?: No Result: 0
[2022-08-08 14:10] LABS: Abs Immature Grans 0.02 10^3/uL (0.0-0.06); Absolute Basophil Count 0.04 10^3/uL (0.0-0.2); Absolute Eosinophil Count 0.31 10^3/uL (0.0-0.7); Absolute Monocyte Count 0.48 10^3/uL (0.1-0.8); Absolute Neutrophil Count 4.26 10^3/uL (1.2-6.7); Basophils % 0.5; Eosinophils % 3.9; HCT 43.4 % (40.0-50.0); HGB 14.6 g/dL (13.5-17.5); Immature Grans % 0.3; Lymphocytes % 35.4; MCH 29.2 pg (27.0-33.0); MCHC 33.6 % (32.0-36.0); MCV 87 fL (80-95); MPV 9.2 fL (8.0-11.0); Monocytes % 6.1; Neutrophils % 53.8; Platelet Count 233 10^3/uL (130-400); RDW 13.5 % (11.8-14.1); RDW-SD 42.9 fL; WBC 7.91 10^3/uL (4.4-10.8)
[2022-08-08 14:36] LABS: ALT 22 U/L (16-63); AST 16 U/L (15-37); Albumin 4.2 g/dL (3.4-5.0); Alkaline Phosphatase 61 U/L (46-116); Anion Gap 8.7 mmol/L (3-11); BUN 13 mg/dL (7-18); Bilirubin, Total 0.3 mg/dL (0.2-1.0); CO2 28.3 mmol/L (21.0-32.0); CREATININE 1.1 mg/dL (0.70-1.30); Calcium 9.2 mg/dL (8.5-10.1); Chloride 104 mmol/L (98-107); Estimated GFR 87.57 (mL/min/1.73m2); Glucose 95 mg/dL (74-106); Potassium 3.9 mmol/L (3.5-5.1); Sodium 141 mmol/L (136-145); TSH (W/Ref FT4) 1.07 uIU/mL (0.36-3.74); Total Protein 7.8 g/dL (6.4-8.2); Troponin I < 50 ng/L (<or=60)
--- NOTE | 2022-08-08 16:31 | PDOC.MHCN ---
Date of service: 08/08/22 Time of Service: 13:10 PHQ-9 Over the last 2 weeks, how often have you been bothered by any of the following problems? 1. Little interest or pleasure in doing things: more than half the days 2. Feeling down, depressed, or hopeless: more than half the days 3. Trouble falling or staying asleep, or sleeping too much: nearly every day 4. Feeling tired or having little energy: nearly every day 5. Poor appetite or overeating: several days 6. Feeling bad about yourself - or that you are a failure or have let yourself and your family down: nearly every day 7. Trouble concentrating on things, such as reading the newspaper or watching television: more than half the days 8. Moving or speaking so slowly that other people could have noticed? - Or the opposite - being so fidgety or restless that you have been moving around a lot more than usual: more than half the days 9. Thoughts that you would be better off or of hurting yourself in some way: several days Total score: 19 If you checked off any problems, how difficult have these problems made it for you to do your work, take care of things at home, or get along with other people?: somewhat difficult Source: Developed by Drs. Manuel Zamora, An Licea, Perez Salazar and colleagues, with an educational dilia from [employer]. Suicide Severity Rate CSSRS Have you wished you were or wished you could go to sleep and not wake up?: No Have you actually had any thoughts of killing yourself?: No CSSRS3 Have you ever done anything, started to do anything or prepared to do anything to end your life?: No CSSRS4 Was this within the past three months?: No Screening Score Total Score: 0 Screening: Negative Mental Health Emergency Note Release [facility] release signed:: No Reason for Visit Client presented to ED after being sent to [facility] after abnormal EKG screening, anxiety and suicidal thoughts. In the last 2 weeks has the pt presented for ES prior to today?: Unknown Client Information Client is: New (Client is not an open client to [facility], intake paperwork was completed with client. Client declined MH services. ) Non Suicidal Self Injury Current: No History: No Safety Risk/Harm to Self or Others Current Ideation to Harm Self or Others: No Risk: Does risk to harm exist?: No Risk: Low Risk Duty to warn indicated: No Asssessment/Mental Status Appearance: Unremarkable Attitude: Cooperative Behavior: Unremarkable Speech: Normal Affect: Flat and Cogruent with mood Mood: Depressed (Client reports his depression and anxiety is stemmed from his medical health issues. Client reports, he is sick of being ill all the time. ) and Anxious Thought process: Unremarkable Hallucinations: No and No evidence Delusions: No and No evidence Attention: Unremarkable Perception: Not impaired Orientation: Fully orientated Memory: Intact Insight: Good Judgement: Good Neurovegetative Symptoms Sleep: No change (Client reports irregular sleep patterns. Client reports each night is always different. Client reports only getting a few hours of sleep last night due to hightened anxiety) Appetitie: No change (Client reports, I am always hungry ) Interests: No change Energy: No change Libido: Not applicable Substance Use: Have you used substances in the last 7 days?: No Impression Client was assessed via zoom. Client presented in [facility] ED. Client is unknown to [facility], intake paperwork was completed with client. However, client declined and reports he is not interested in receiving services or scheduling any MH OP services with the agency at this time. Client reports, I need to focus on my medical issues, my mental health is not where I need help, unless you can help fix my illnesses you can not help me. It should be noted during the screening client's mother Lucrecia remained in the room per client's request. Client reports he has multiple stressors currently, such as: health bills, money, etc. Client reports last night he was experiencing heightened anxiety levels in regards to these mentioned stressors. Client reports he has, break downs. Client reports his most recent break down was on Sunday. Client reports he physically could not get out of bed due to feeling physically ill. Client denies currently endorsing SI/HI/NSSI. Client reports he experienced passive thoughts of suicide on Sunday. Client reports, I am frustrated I don't want to be sick all of the time, I don't want to go off myself though. Client denies intent/plan. On a self rated scale from 0-10, 0 being not at all to 10 being 100%, client rated himself a 0 on how likely he would be to go home and act on his thoughts of suicide or harm himself in any way. Client denies current/past hx of NSSIB's/HI. Client denies any past/current hx of MH services. This quality analyst/technical writer asked client if there were any further supports that were not currently in place this quality analyst/technical writer could help assist with, client declined. Client was offered for referral for OP therapy services be submitted by this quality analyst/technical writer, client declined. Client reports he has access to means at home. Client reports he owns guns and is an avid mike. This quality analyst/technical writer spoke with client regarding access to means. Client reports he does not feel as if removal of guns is necessary. Client reports, I have no intention on using my guns to harm myself I need them for hunting. After screening client this quality analyst/technical writer provided update to attending nurse Capellan. Client is not a risk to himself/others at this time currently. This quality analyst/technical writer took incoming call from attending Dr. Mahesh Dominguez briefly after screening client. Conversation took place regarding client having access to firearms. This quality analyst/technical writer informed Dr. Dominguez of the details regarding the conversation the quality analyst/technical writer had with the client. This quality analyst/technical writer offered Dr. Dominguez support in providing further follow-up conversation to take place with client; Dr. Dominguez reports he will discuss matter with client that further support was not needed at this time. This quality analyst/technical writer also informed Dr. Dominguez client declined any follow-up OP MH services through [facility]. Plan/Disposition Recommended Disposition: [facility] Services (OP Therapy services were offered to client, client declined) [facility] Services: Therapy. Plan: Client is to be discharged from ED. Client is not a risk to himself/other at this current time. Client was offered to begin MH services through [facility], client declined and reports he does not feel it is necessary at this time. In terms of mangaing his anxiety/depression client reports, he feels he needs to focus on his physical health before he can worry about his MH. Person reported agreement to plan: Yes Reports/communication Outcome discussed with: ED/Personnel (Attending nurse Capellan and Attending Dr. Mahesh Dominguez)
== END 2022-08-08 17:19 | disposition home or self-care (01) ==
PROVIDERS: Emergency Provider Student in an Organized Health Care Education/Training Program; PCP Nurse Practitioner Family
DX: F32.A Depression, unspecified (principal); R07.89 Other chest pain
CPT/HCPCS: 36415; 80053; 93005; 99283; 84443; 84484; 85025; 93010; 99284

== ENCOUNTER 2023-10-11 16:18 | Emergency (ER) | payer BC, SELFPAY ==
[2023-10-11 16:21] VITALS: BP 144/105; PULSE 87; RESP 18; TEMP 36.5; O2SAT 97
[2023-10-11 16:27] VITALS: BP 144/105; PULSE 87; RESP 18; TEMP 36.5; O2SAT 97
--- NOTE | 2023-10-11 16:30 | DI.RAD_ITS ---
Exam(s) XR CHEST 2V PA LATERAL EXAM: XR CHEST 2V PA LATERAL CLINICAL HISTORY: cough TECHNIQUE: 2D digital imaging was performed of the chest. Two images were obtained. PA and lateral views were obtained. COMPARISON: CR,XR XR PORTABLE CHEST AP from 05/03/2022 FINDINGS: MEDIASTINUM: Normal. HEART: Normal. PULMONARY VASCULATURE: Normal. LUNGS: Clear. PLEURAL SPACE: No pleural effusion or pneumothorax. BONE:Within normal limits for the patient's age. OTHER FINDINGS:Normal. IMPRESSION: No acute pulmonary findings. DATA REPOSITORY: RADIATION DOSE DELIVERED:
[2023-10-11 16:46] VITALS: RESP 5
[2023-10-11] MEDS: predniSONE 20 MG TAB 40 MG PO (16:46)
[2023-10-11] MEDS: Albuterol/Ipratropium 3 ML UPD VIAL UPD (16:46)
[2023-10-11 17:14] LABS: COVID-19 PCR Negative (Negative); Influenza A PCR Negative (Negative); Influenza B PCR Negative (Negative)
[2023-10-11 17:15] LABS: Source NASOPHARYNX
[2023-10-11 17:17] LABS: RSV PCR Positive (Negative)
[2023-10-11] MEDS: Inhaler, Assist Device 1 EACH MC (17:49)
[2023-10-11] MEDS: Albuterol HFA 8 GM 60 PUFF INH IH (17:49)
--- NOTE | 2023-10-11 20:42 | ED.GENADUL_ITS ---
HPI General Stated Complaint: RespSymp JUAN ALBERTO: 3 Date/Time Provider Initiated Documentation: 10/11/23 16:27. Limitations to Documentation: no limitations. Information obtained by: patient. HPI Narrative: 43-year-old gentleman with past medical history of ADD presents for evaluation of cough. Symptoms have been ongoing for the last 4 days. Cough productive of thick mucus. Not associated with fever. Is having nasal congestion, frontal headache and sore throat. No known sick contacts. Taking [id number] cold medications without significant relief. Does not smoke. Related Data Home Medications Medication Instructions Recorded Confirmed esomeprazole magnesium 40 mg 40 mg PO DAILY #90 caps 04/20/23 10/11/23 capsule,delayed release (Nexium) dextroamphetamine-amphetamine ER 10 mg PO DAILY #28 caps 06/12/23 10/11/23 10 mg 24hr capsule,extend release sertraline 100 mg tablet 100 mg PO DAILY #90 tabs 10/08/23 10/11/23 prednisone 20 mg tablet 40 mg (2 x 20 mg) PO DAILY 5 days 10/11/23 #10 tabs promethazine 6.25 mg/5 mL oral 12.5 mg (10 mL) PO Q6H PRN cough 10/11/23 syrup #120 mL Previous Rx's Medication Instructions Recorded esomeprazole magnesium 40 mg 40 mg PO DAILY #90 caps 04/20/23 capsule,delayed release (Nexium) dextroamphetamine-amphetamine ER 10 mg PO DAILY #28 caps 06/12/23 10 mg 24hr capsule,extend release sertraline 100 mg tablet 100 mg PO DAILY #90 tabs 10/08/23 prednisone 20 mg tablet 40 mg (2 x 20 mg) PO DAILY 5 days 10/11/23 #10 tabs promethazine 6.25 mg/5 mL oral 12.5 mg (10 mL) PO Q6H PRN cough 10/11/23 syrup #120 mL Allergies Allergy/AdvReac Type Severity Reaction Status Date / Time No Known Allergies Allergy Verified 10/11/23 16:24 PFSH All Active Problems Wheezing (Acute) URI (upper respiratory infection) (Acute) RSV bronchitis (Acute) Bilateral sensorineural hearing loss (Acute) Bilateral tinnitus (Acute) ADD (attention deficit disorder) (Acute) Celiac disease (Acute) Gastric ulcer (Acute) Abdominal pain (Acute) Pneumonia (Acute) Pericarditis (Acute) Anxiety (Chronic) Medical History Gastritis Surgical History History of esophagogastroduodenoscopy (EGD) (~05/2022) S/P appendectomy Family History Father Hiatal hernia Social History Smoking/Tobacco Use Status: Current every day Tobacco Type: e-cigarettes Smoking risk assessment performed?: Yes Alcohol Intake: current Alcohol Intake frequency: holidays/special occasions only Drug use: Occasionally Substance use type: marijuana Do you feel safe at home: Yes Do you feel safe in your relationship?: Yes PAWSS Have you Been Recently Intoxicated or Drunk Within the Last 30 days?: No Have you Ever Experienced Previous Episodes of Alcohol Withdrawal?: No Have you ever Experienced Withdrawal Seizures?: No Have you ever Experienced Delirium Tremens(DT)s?: No Have you ever undergone Alcohol Rehabilitation Treatment (i.e, inpt ot outpatient treatment programs)?: No Have you ever Experienced Blackouts?: No Have you ever Combined Alcohol with other Downers within the last 90 days?: No Have you ever Combined Alcohol with any other Substance of Abuse during the last 90 days?: No Positive Blood Alcohol level on Presentation? [PCS.BAL]: No Evidence of Increased Autonomic Activity (i.e. HR>120, tremor, sweating, agitation, nausea)?: No Result: 0 Exam Narrative Exam Narrative: Review of Systems: All systems reviewed & are unremarkable except as noted in HPI and below Well-developed, no acute distress NACT PERRL, normal conjunctiva Bilateral TMs with clear effusion, no bulging No intraoral lesions, oropharynx clear without exudates RRR Unlabored respiratory effort, coarse breath sounds bilaterally with wheezing Nondistended abdomen Extremities w/o deformity, no cyanosis, no edema No rashes or lesions. no focal neurologic deficits Appropriate mood and affect Course Vital Signs Vital signs: Vital Signs Temperature 36.5 C 10/11/23 16:21 Pulse 87 10/11/23 16:21 Respiratory Rate 18 10/11/23 16:21 Blood Pressure 144/105 H 10/11/23 16:21 Pulse Oximetry 97 10/11/23 16:21 Temperature 36.5 C 10/11/23 16:27 Temperature Source Temporal Artery Scan 10/11/23 16:27 Pulse 87 10/11/23 16:27 Respiratory Rate 18 10/11/23 16:27 Respiratory Effort Short of Breath 10/11/23 16:37 Respiratory Depth Normal 10/11/23 16:37 Blood Pressure 144/105 H 10/11/23 16:27 Blood Pressure Position Sitting 10/11/23 16:27 Pulse Oximetry 97 10/11/23 16:27 Oxygen Delivery Method Room Air 10/11/23 16:27 Oxygen Flow Rate 0 10/11/23 16:27 Lab/Test Results Lab/Test Results: Laboratory Tests Range/Units 10/11/23 14:34 COVID-19 Source NASOPHARYNX SARS-CoV-2 (PCR) (Negative) Negative Influenza Type A (PCR) (Negative) Negative Influenza Type B (PCR) (Negative) Negative RSV (PCR) (Negative) Positive A* Medical Decision Making Emergent evaluation of cough and URI symptoms. Initial differential includes viral illness, pneumonia, doubt cardiopulmonary etiology of symptoms. Patient denies smoking history. He is wheezing today. Because he is wheezing, chest x- ray was obtained. X-ray reviewed and independently interpreted by me, there is no focal consolidation. RSV testing positive the patient was given steroids and a bronchodilator. On reassessment, the breath sounds were clear bilaterally with better air movement. Patient was provided an MDI and spacer to use at home with instructions. Will treat with steroid course and cough medication, Phenergan syrup. Return precautions advised. Follow-up with PCP. Medical Records Medical records reviewed: Yes I reviewed the patient's medical records. Lab Data Lab results reviewed: Yes I reviewed the patient's lab results. Quality:SDCT Health Related Social Needs: No Data to Display Discharge Plan Disposition Patient Disposition: Home Discharge Details Clinical Impression: RSV bronchitis, URI (upper respiratory infection), Wheezing Primary Care Provider: Larry Berg ED Provider: Ladi Sánchez Home Meds and New Rx's Prescriptions: New promethazine 6.25 mg/5 mL syrup 12.5 mg PO Q6H PRN (Reason: cough) Qty: 120 0RF prednisone 20 mg tablet 40 mg PO DAILY 5 Days Qty: 10 0RF No Action dextroamphetamine-amphetamine 10 mg capsule,extended release 24hr 10 mg PO DAILY MDD 10mg Qty: 28 0RF esomeprazole magnesium [Nexium] 40 mg capsule,delayed release(DR/EC) 40 mg PO DAILY Qty: 90 3RF sertraline 100 mg tablet 100 mg PO DAILY Qty: 90 3RF Discharge Instructions Instructions: Upper Respiratory Infection (ED) Additional Instructions: Use albuterol inhaler with spacer every 4 hours to help with cough. Use this for the next 24 hours, then after that space it to use as needed. Take steroids starting tomorrow for 5 days. Use cough medication as needed. This may make you a little bit sleepy. Symptoms may continue for several more days. Make sure to stay hydrated, Motrin and Tylenol as needed for body aches and fever. Follow-up with your primary care provider. Stand Alone Forms: Work Release Discharge Data Discharge Date/Time-TO BE ENTERED AT DEPARTURE: 10/11/23 17:50
== END 2023-10-11 17:50 | disposition home or self-care (01) ==
PROVIDERS: Emergency Provider Emergency Medicine; PCP Nurse Practitioner Family
DX: J20.5 Acute bronchitis due to respiratory syncytial virus (principal); R06.2 Wheezing; F17.290 Nicotine dependence, other tobacco product, uncomplicated
CPT/HCPCS: 87637; 94640; 99284; 71046; J7512; J7620